=== PATIENT | male | born 1945 | race Caucasian/White ===

== ENCOUNTER 2017-05-04 20:37 | Inpatient (IN) | payer MEDICARE ==
[2017-05-04 20:41] VITALS: BP 198/89; PULSE 61; RESP 16; TEMP 87.8; TEMP 97.8; O2SAT 97
[2017-05-04 21:04] VITALS: RESP 18; O2SAT 98
--- NOTE | 2017-05-04 21:19 | PD ---
HPI Chief Complaint: Neuro Symptoms/ Deficits Time Seen by Provider: 21:03 Travel History International Travel<30 days: No Contact w/Intl Traveler<30days: No Traveled to known affect area: No History of Present Illness HPI The patient is a 71 year old male who presents to the [facility] emergency department with a history of at approximately 5 PM today having onset of left arm numbness and weakness. The patient reports that this lasted between 10 and 15 minutes. He reports that it then again recurred at 7:45 PM. At that time it lasted for shorter period of time, approximately 10 minutes. He became concerned that this may be something serious, therefore he did come to the emergency department. He denies having any symptoms currently. He denies having any prior history of TIA or stroke. He reports that he does take a low- dose aspirin daily for preventative reasons. The patient reports having a prior history of hyperlipidemia and hypertension. The patient's primary care physician is Dr. Paiz. He denies having any prior history of irregular heartbeat. The patient denies having any associated weakness in his legs. He denies having any facial droop, difficulty with word finding ability, double vision or change in vision. On review of systems, the patient denies any recent fevers, headache, cough, congestion, neck pain, chest pain, shortness of breath, abdominal pain, vomiting, diarrhea, or urinary symptoms. [facility] Past Medical History Narrative Medical The patient's past medical history is significant for hypertension, hyperlipidemia, seasonal allergies FH heart disease. High Cholesterol: Yes Hypertension: Yes Immunizations Current: Yes Past Surgical History Narrative Surgical The patient's past surgical history is significant for a bilateral inguinal hernia repair. Abdominal Surgery: Yes (INGUINAL HERNIA) Social History Alcohol Use: Yes Tobacco Use: No (he quit prior to 1974) Substance Use: No Allergies-Medications (Allergen,Severity, Reaction): Coded Allergies: No Known Allergies (Unverified , 05/04/17) Reported Meds & Prescriptions Reported Meds & Active Scripts Active Narrative Medication atorvastatin, aspirin 81mg. Review of Systems Except as stated in HPI: all other systems reviewed are Neg General / Constitutional: No: Fever Eyes: No: Visual changes HENT: No: Headaches Cardiovascular: No: Chest Pain or Discomfort Respiratory: No: Shortness of Breath Gastrointestinal: No: Abdominal Pain Genitourinary: No: Dysuria Musculoskeletal: No: Pain Skin: No Rash Neurologic: Positive: Weakness, Focal Abnormalities, Paresthesia, Sensory Disturbance, No: Headache, Change in Mentation, Slurred Speech Psychiatric: No: Depression Endocrine: No: Polydipsia Hematologic/Lymphatic: No: Easy Bruising Physical Exam Narrative General: The patient is a well-developed well-nourished male in no acute distress. Head and Neck exam: Head is normocephalic atraumatic. Eyes: EOMI, pupils are equal round and reactive to light. Nose: Midline septum with pink mucous membranes Mouth: Dentition unremarkable. Moist mucus membranes. Posterior oropharynx is not erythematous. No tonsillar hypertrophy. Uvula midline. Airway patent. Neck: No palpable lymphadenopathy. No nuchal rigidity. No thyromegaly. No carotid bruits are audible. Cardiovascular: Regular rate and rhythm without murmurs, gallops, or rubs. No pulse deficit to the extremities and simultaneous auscultation and palpation of his radial artery. Lungs: Clear to auscultation bilaterally. No wheezes, rhonchi, or rales. Abdomen: Soft, without tenderness to palpation in all 4 quadrants of the abdomen. No guarding, rebound, or rigidity. Normal bowel sounds are audible. No tenderness on palpation of McBurney's point. Extremities: No clubbing, cyanosis, or edema. 2+ pulses in all 4 extremities. No calf tenderness on palpation. Back: No costovertebral angle tenderness to palpation. Neurologic Exam: Cranial nerves 2-12 were intact on exam. Strength is 5/5 in all 4 extremities. No sensory deficits noted. No dysdiadochokinesis. Good finger to nose and Heel to cerrato bilaterally. Skin Exam: No rash noted. Intact skin that is warm and dry. Data Data Last Documented VS Vital Signs Date Time Temp Pulse Resp B/P Pulse Ox O2 Delivery O2 Flow Rate FiO2 05/04/17 21:04 56 18 97 Room Air 05/04/17 20:41 97.8 198/89 Orders Electrocardiogram (05/04/17 21:27) Complete Blood Count With Diff (05/04/17 21:27) Comprehensive Metabolic Panel (05/04/17 21:27) Prothrombin Time / Inr (Pt) (05/04/17 21:27) Act Partial Throm Time (Ptt) (05/04/17 21:27) Magnesium (Mg) (05/04/17 21:27) Ct Brain W/O Iv Contrast(Rout) (05/04/17 21:27) Iv Access Insert/Monitor (05/04/17 21:27) Ecg Monitoring (05/04/17 21:27) Oximetry (05/04/17 21:27) Head Of Bed (05/04/17 21:27) Sodium Chlor 0.9% 1000 Ml Inj (Ns 1000 M (05/04/17 21:30) Admit Order (Ed Use Only) (05/04/17 22:38) Place In Observation (05/04/17 ) Vital Signs (Adult) Q2HX12,Q4H (05/04/17 22:37) Nih Stroke Scale - Nihss .Daily (05/04/17 22:37) Neuro Checks Q2HX12,Q4H (05/04/17 22:37) Notify Dr: Other (05/04/17 22:37) Remove Urinary Catheter .ONCE (05/04/17 22:37) Ot Request For Service (05/04/17 22:37) Pt Request For Service (05/04/17 22:37) Case Management Consult (05/04/17 ) Nursing Bedside Swallow Assess .ONCE (05/04/17 22:37) Scd Bilateral/Knee High PAM.QSHIFT (05/04/17 22:37) Hemoglobin (Hgb) A1c (05/04/17 22:37) Lipid Profile (05/05/17 06:00) Us Carotid Arteries Comp Bilat (05/04/17 ) ^ Hold Medication (05/04/17 22:37) Sodium Chloride 0.9% Flush (Ns Flush) (05/05/17 09:00) Sodium Chloride 0.9% Flush (Ns Flush) (05/04/17 22:45) Technical Consultant / Telemetry PAM.Q8H (05/04/17 22:37) Consult Stoke Navigator (05/04/17 ) Echo 2d Comp With Doppler (05/05/17 ) Labs Laboratory Tests Test 05/04/17 21:00 White Blood Count 10.1 TH/MM3 Red Blood Count 4.96 MIL/MM3 Hemoglobin 14.9 GM/DL Hematocrit 44.2 % Mean Corpuscular Volume 89.1 FL Mean Corpuscular Hemoglobin 30.0 PG Mean Corpuscular Hemoglobin 33.7 % Concent Red Cell Distribution Width 13.2 % Platelet Count 234 TH/MM3 Mean Platelet Volume 7.9 FL Neutrophils (%) (Auto) 57.2 % Lymphocytes (%) (Auto) 33.5 % Monocytes (%) (Auto) 7.1 % Eosinophils (%) (Auto) 1.4 % Basophils (%) (Auto) 0.8 % Neutrophils # (Auto) 5.8 TH/MM3 Lymphocytes # (Auto) 3.4 TH/MM3 Monocytes # (Auto) 0.7 TH/MM3 Eosinophils # (Auto) 0.1 TH/MM3 Basophils # (Auto) 0.1 TH/MM3 CBC Comment DIFF FINAL Differential Comment Prothrombin Time 10.1 SEC Prothromb Time International 0.9 RATIO Ratio Activated Partial 24.4 SEC Thromboplast Time Sodium Level 142 MEQ/L Potassium Level 3.6 MEQ/L Chloride Level 108 MEQ/L Carbon Dioxide Level 24.9 MEQ/L Anion Gap 9 MEQ/L Blood Urea Nitrogen 24 MG/DL Creatinine 1.13 MG/DL Estimat Glomerular Filtration 64 ML/MIN Rate Random Glucose 124 MG/DL Calcium Level 8.5 MG/DL Magnesium Level 2.4 MG/DL Total Bilirubin 0.4 MG/DL Aspartate Amino Transf 32 U/L (AST/SGOT) Alanine Aminotransferase 37 U/L (ALT/SGPT) Alkaline Phosphatase 76 U/L Total Protein 7.2 GM/DL Albumin 4.1 GM/DL MDM Medical Decision Making Medical Screen Exam Complete: Yes Emergency Medical Condition: Yes Medical Record Reviewed: Yes Interpretation(s) Last Impressions Head CT 05/04/172126 Signed Impressions: Service Date/Time: Thursday, May 04, 2017 21:51 - CONCLUSION: Negative noncontrast CT brain. Easton Rainey MD Carotid Artery Ultrasound 05/04/17 0000 Signed Impressions: Service Date/Time: Thursday, May 04, 2017 22:37 - CONCLUSION: 1. Abnormal right carotid with significantly elevated peak systolic velocity and velocity ratio, characteristic of 70-90%% stenosis. 2. Mild plaque formation in the left carotid with hemodynamic profile characteristic of less than 50%% stenosis. Easton Rainey MD Differential Diagnosis TIA, versus cervical radiculopathy, versus peripheral neuropathy Narrative Course During the course of the patients emergency department visit, the patients history, examination, and differential diagnosis were reviewed with the patient. The patient had IV access obtained and blood work sent for analysis. The patient was placed on a computer application developer with oximetry and blood pressure monitoring. The patient was placed with the head of the bed flat. The patient was given normal saline at 70 mL per hour. An ECG done on arrival shows a sinus bradycardia heart rate of 57, left anterior fascicular block, no acute ST segment elevation or depression, T waves are inverted in V5, V6. QRS duration is 102 ms, QTC is [address] scan of the brain was ordered. The patients laboratory studies were reviewed and remarkable for a CBC that is within normal limits, CMP is remarkable for chloride of 108, BUN 24, glucose 124 , PT 10.1, PTT 24.4 Radiology studies were reviewed and remarkable for a CT scan of the brain that showed no acute abnormality. After further discussion with the admitting hospitalist, the patient was started on Aggrenox. The patients results were discussed with the patient, including the plan of care. I explained that further testing and/ or monitoring is indicated based on the patients history, examination, and/ or laboratory findings. Therefore, I recommended admission for additional evaluation. The patient expressed understanding and was agreeable with this plan. The patient was admitted to the hospital in guarded condition and [facility] Physician Communication Physician Communication The patient's case was discussed with Dr. Bolden who did agree to admit the patient for further evaluation and treatment at this time. Diagnosis Primary Impression: TIA (transient ischemic attack) Qualified Code: G45.9 - Transient cerebral ischemia, unspecified type Admitting Information Admitting Physician Requests: Carmen rBidges MD May 04, 2017 21:19
[2017-05-04] MEDS: SODIUM CHLOR 0.9% 1000 ML INJ 1,000 ML IV SCH (21:47)
[2017-05-04 22:05] LABS: AUTOMATED NEUTROPHIL # 5.8 TH/MM3 (1.8-7.7); BASOPHIL # 0.1 TH/MM3 (0-0.2); BASOPHIL % 0.8 % (0.0-2.0); EOSINOPHIL # 0.1 TH/MM3 (0-0.4); EOSINOPHIL % 1.4 % (0.0-4.0); HEMATOCRIT 44.2 % (39.0-51.0); HEMO FLAGS DIFF FINAL; LYMPH % 33.5 % (9.0-44.0); LYMPHOCYTE # 3.4 TH/MM3 (1.0-4.8); MEAN CELL VOLUME 89.1 FL (80.0-100.0); MEAN CORPUSCULAR HGB CONC 33.7 % (32.0-36.0); MONO % 7.1 % (0.0-8.0); NEUT % 57.2 % (16.0-70.0); PLATELET COUNT 234 TH/MM3 (150-450); RED BLOOD COUNT 4.96 MIL/MM3 (4.50-5.90); RED CELL DISTRIBUTION WIDTH 13.2 % (11.6-17.2); WHITE BLOOD COUNT 10.1 TH/MM3 (4.0-11.0)
[2017-05-04 22:18] LABS: APTT (PATIENT) 24.4 SEC (24.3-30.1); INTERNATIONAL NORMALIZED RATIO 0.9 RATIO; PROTHROMBIN TIME - PATIENT 10.1 SEC (9.8-11.6)
[2017-05-04 22:20] LABS: ALT (GPT) 37 U/L (12-78)
[2017-05-04 22:22] LABS: ALKALINE PHOSPHATASE 76 U/L (45-117); TOTAL BILIRUBIN ADULT 0.4 MG/DL (0.2-1.0)
[2017-05-04 22:23] LABS: ANION GAP 9 MEQ/L (5-15); AST (GOT) 32 U/L (15-37); BICARBONATE 24.9 MEQ/L (21.0-32.0); BLOOD UREA NITROGEN 24 MG/DL (7-18); CHLORIDE 108 MEQ/L (98-107); GLOMERULAR FILTRATION RATE 64 ML/MIN (>89); MAGNESIUM 2.4 MG/DL (1.5-2.5); POTASSIUM 3.6 MEQ/L (3.5-5.1); SODIUM (NA) 142 MEQ/L (136-145)
[2017-05-04] MEDS ORDERED: SODIUM CHLORIDE 0.9% FLUSH 5 ML FLUSH IV FLUSH PRN (22:45)
--- NOTE | 2017-05-04 22:54 | RADRPT ---
EXAM DATE/TIME: 05/04/2017 21:51 [facility] COMPARISON: No previous studies available for comparison. INDICATIONS : Left side weakness and numbness. RADIATION DOSE: 35.51 CTDIvol (mGy) MEDICAL HISTORY : Hypertension. Hernia, inguinal. SURGICAL HISTORY : None. ENCOUNTER: Initial ACUITY: 1 day PAIN SCALE: 0/10 LOCATION: cranial TECHNIQUE: Multiple contiguous axial images were obtained of the head. Using automated exposure control and adj ustment of the mA and/or kV according to patient size, radiation dose was kept as low as reasonably a chievable to obtain optimal diagnostic quality images. DICOM format image data is available electro nically for review and comparison. FINDINGS: CEREBRUM: The ventricles are normal for age. No evidence of midline shift, mass lesion, hemorrhage or acute in farction. No extra-axial fluid collections are seen. POSTERIOR FOSSA: The cerebellum and brainstem are intact. The 4th ventricle is midline. The cerebellopontine angle i s unremarkable. EXTRACRANIAL: The visualized portion of the orbits is intact. SKULL: The calvaria is intact. No evidence of skull fracture. CONCLUSION: Negative noncontrast CT brain. Easton Rainey MD on May 04, 2017 at 22:51 Board Certified Radiologist. This report was verified electronically.
[2017-05-04 23:00] VITALS: BP 171/85; PULSE 65; RESP 16; O2SAT 98
--- NOTE | 2017-05-04 23:40 | HHI.HP ---
HPI Service [facility] Primary Care Physician Ángel Paiz Admission Diagnosis TIA Diagnoses: Travel History International Travel<30 Days: No Contact w/Intl Traveler <30 Da: No Traveled to Known Affected Are: No History of Present Illness History from patient with his at the bedside, ER physician communication, and review of medical records. Patient reported that he came to the hospital because he was having this left upper extremity numbness at around 5 PM. He stated that the episode lasted for about 15 minutes and then took resolved on its own. By 7:30 PM, he had another episode of this numbness on his left upper extremity again. This also spontaneously resolved after a few minutes. Apart from the above, patient denies any recent fever/nausea/vomiting/diarrhea/ urinary burning or pain on urination. He denies any hematemesis/hematochezia/melena/hematuria. Denies any prior similar episodes. Reports that he has history of hypertension, and hyperlipidemia. He is compliant with his medications. He states he takes a baby aspirin at home as well. He is also on blood pressure and cholesterol medication at home. Review of Systems Except as stated in HPI: all other systems reviewed are Neg Past Family Social History Past Medical History hnt hyperlipidemia Past Surgical History hernia inguinal repair x 2 Reported Medications norvasc 10mg po daily fexofenadine 180mg po daily omega 3 atorvastatin 10mg qhs asa 81mg po daily fluticasone nasal spray- allergiies mvi Allergies: Coded Allergies: No Known Allergies (Unverified , 05/04/17) Family History brother and father- bypass cabg brother- tia Social History quit smoking 45yrs ago no drinking heavily no drugs Physical Exam Vital Signs Vital Signs Date Time Temp Pulse Resp B/P Pulse Ox O2 Delivery O2 Flow Rate FiO2 05/04/17 21:04 56 18 97 Room Air 05/04/17 21:04 18 98 Room Air 05/04/17 20:41 97.8 61 16 198/89 97 Room Air Physical Exam GENERAL: This is a well-nourished, well-developed patient, in no apparent distress. SKIN: No rashes, ecchymoses or lesions. Cool and dry. HEAD: Atraumatic. Normocephalic. No temporal or scalp tenderness. EYES: No scleral icterus. No injection or drainage. ENT: Nose without bleeding, purulent drainage or septal hematoma. Airway patent. NECK: Trachea midline. No JVD CARDIOVASCULAR: Regular rate and rhythm without murmurs, gallops, or rubs. RESPIRATORY: Clear to auscultation. Breath sounds equal bilaterally. No wheezes , rales, or rhonchi. GASTROINTESTINAL: Abdomen soft, non-tender, nondistended. No guarding. MUSCULOSKELETAL: Extremities without clubbing, cyanosis, or edema. No calf tenderness. NEUROLOGICAL: Awake and alert. Cranial nerves II through XII intact. Motor and sensory grossly within normal limits. Five out of 5 muscle strength in all muscle groups. Normal speech. Laboratory Laboratory Tests Test 05/04/17 21:00 White Blood Count 10.1 Red Blood Count 4.96 Hemoglobin 14.9 Hematocrit 44.2 Mean Corpuscular Volume 89.1 Mean Corpuscular Hemoglobin 30.0 Mean Corpuscular Hemoglobin 33.7 Concent Red Cell Distribution Width 13.2 Platelet Count 234 Mean Platelet Volume 7.9 Neutrophils (%) (Auto) 57.2 Lymphocytes (%) (Auto) 33.5 Monocytes (%) (Auto) 7.1 Eosinophils (%) (Auto) 1.4 Basophils (%) (Auto) 0.8 Neutrophils # (Auto) 5.8 Lymphocytes # (Auto) 3.4 Monocytes # (Auto) 0.7 Eosinophils # (Auto) 0.1 Basophils # (Auto) 0.1 CBC Comment DIFF FINAL Differential Comment Prothrombin Time 10.1 Prothromb Time International 0.9 Ratio Activated Partial 24.4 Thromboplast Time Sodium Level 142 Potassium Level 3.6 Chloride Level 108 Carbon Dioxide Level 24.9 Anion Gap 9 Blood Urea Nitrogen 24 Creatinine 1.13 Estimat Glomerular Filtration 64 Rate Random Glucose 124 Calcium Level 8.5 Magnesium Level 2.4 Total Bilirubin 0.4 Aspartate Amino Transf 32 (AST/SGOT) Alanine Aminotransferase 37 (ALT/SGPT) Alkaline Phosphatase 76 Total Protein 7.2 Albumin 4.1 Result Diagram: 05/04/17 2100 05/04/17 2100 Imaging Last [address] 05/04/172126 Signed Impressions: Service Date/Time: Thursday, May 04, 2017 21:51 - CONCLUSION: Negative noncontrast CT brain. Easton Rainey MD Carotid Artery Ultrasound 05/04/17 0000 Signed Impressions: Service Date/Time: Thursday, May 04, 2017 22:37 - CONCLUSION: 1. Abnormal right carotid with significantly elevated peak systolic velocity and velocity ratio, characteristic of 70-90%% stenosis. 2. Mild plaque formation in the left carotid with hemodynamic profile characteristic of less than 50%% stenosis. Easton Rainey MD Assessment and Plan Assessment and Plan Impression: TIA History of hypertension, History of hyperlipidemia Plan: Patient's head CTpersonally reviewed. No evidence of acute infarct/mass effect /bleed. Patient is also asymptomatic by the time of our examination and arrival to ER. However, I had ordered for carotid ultrasound as part of workup for his TIA and this reveals significant right carotid artery stenosis of 70-90%. Would consult vascular surgery. Urology consult. Give patient Aggrenox 1 times dose now, and followed by twice a day dosing. Further anticoagulation choice by neurology. Permissive hypertension for now. Echocardiogram in a.m. Speech and swallow evaluation. Physical therapy evaluation. DVT prophylaxiswith Lovenox. Changed to full admit in light of carotid ultrasound findings and patient's repeated TIA symptoms on the left consistent with right carotid artery stenosis Discussed Condition With Patient, , ER physician, nursing staff Kaya Bolden MD May 04, 2017 23:40
--- NOTE | 2017-05-04 23:50 | RADRPT ---
EXAM DATE/TIME: 05/04/2017 22:37 [facility] COMPARISON: No previous studies available for comparison. INDICATIONS : Transient ischemic attack. MEDICAL HISTORY : Hypercholesterolemia. Hypertension. Alcohol use. SURGICAL HISTORY : Hernia repair, inguinal. ENCOUNTER: Initial ACUITY: 1 day PAIN SCORE: 0/10 LOCATION: Bilateral neck PEAK SYSTOLIC VELOCITIES (cm/sec): ICA/CCA RATIO: Right: 4.8 Left: 0.9 ICA: Right: 389.3 Left: 114.3 CCA: Right: 81.7 Left: 122.3 ECA: Right: 224.4 Left: 148.9 VERTEBRAL: Right: 42.6 antegrade Left: 38.7 antegrade Elevated flow velocities and ICA/CCA ratios have been found to correlate with increased degrees of vessel stenosis, calculated as percentage of diameter relative to a normal segment of distal ICA/CCA FINDINGS: RIGHT CAROTID: There is prominent echogenic and partially shadowing plaque in the proximal internal carotid artery a nd carotid bulb. There is significant widening of the velocity spectrum in the proximal and mid inte rnal carotid artery with negative velocity components during systole. LEFT CAROTID: Mild plaque formation in the proximal internal carotid artery without significant spectral widening. VERTEBRAL ARTERIES: Antegrade flow is seen in both vertebral arteries. CONCLUSION: 1. Abnormal right carotid with significantly elevated peak systolic velocity and velocity ratio, colette acteristic of 70-90% stenosis. 2. Mild plaque formation in the left carotid with hemodynamic profile characteristic of less than 50% stenosis. Easton Rainey MD on May 04, 2017 at 23:45 Board Certified Radiologist. This report was verified electronically.
[2017-05-05] VITALS (7 sets, daily range): BP systolic 146–174; BP diastolic 78–87; PULSE 56–62; RESP 16–20; TEMP 97.5–98.1; O2SAT 95–98
[2017-05-05] MEDS ORDERED: DIPYRIDAMOLE/ASPIRIN 200 MG/25 MG CAP PO ONE
[2017-05-05] MEDS ORDERED: AMLO10TA2 PO (05:06)
[2017-05-05] MEDS ORDERED: ATOR10TA15 PO (05:06)
[2017-05-05] MEDS ORDERED: FEXO180T PO (05:06)
[2017-05-05] MEDS ORDERED: ASPI81CH CHEW (05:06)
[2017-05-05] MEDS: SODIUM CHLORIDE 0.9% FLUSH 5 ML FLUSH IV FLUSH SCH ×2 (07:44→20:58)
[2017-05-05] MEDS: SODIUM CHLOR 0.9% 1000 ML INJ 1,000 ML IV SCH (07:44)
[2017-05-05] MEDS ORDERED: DIPYRIDAMOLE/ASPIRIN 200 MG/25 MG CAP PO SCH (09:00)
[2017-05-05] MEDS ORDERED: ENOXAPARIN SODIUM 40 MG/0.4 ML SYRINGE SQ SCH (09:00)
--- NOTE | 2017-05-05 10:13 | PD.VS.CON ---
History of Present Illness Chief Complaint: Right Sided Carotid Stenosis Recent Hx of two episodes of Left arm weakness/numbness (resolved) Consult Requested by: Dr. Bolden History of Present Illness Mr. Redding is a 71/M with a PMH of Hypertension and Hyperlipidemia. Pt arrived to the Emergency Department yesterday evening after experiencing two episodes of left arm weakness/numbness lasting 15 minutes. Pt denied any visual or speech disturbances while episodes occurred. Recent Ultrasound study revealed new onset right sided carotid artery stenosis, No previous hx of (Jessica Wagner) Past/Family/Social History Past Medical History HTN Hyperlipidemia Past Surgical History Inguinal Hernia Repair X 2 (42 years ago) Social History Admits to Etoh Denies current tobacco usage Denies Illicit drug usage Pt with a 7Y hx of tobacco usage quit in 1969 Family History Father- CAD (Hx of CABG) Brother- TIA, CAD (Hx of CABG) (Jessica Wagner) Home Medications Reported Medications Aspirin 81 Mg Chew81 Mg CHEW DAILY Ref 0 05/05/17 Amlodipine 10 Mg Tab10 Mg PO DAILY #30 TAB Ref 0 05/05/17 Fexofenadine 180 Mg Hal937 Mg PO DAILY #30 TAB Ref 0 05/05/17 Atorvastatin 10 Mg Tab10 Mg PO HS #30 TAB Ref 0 05/05/17 Coded Allergies: No Known Allergies (Unverified , 05/04/17) Review of Systems Except as stated in HPI: all other systems reviewed are Neg (Jessica Wagner) Physical Exam Vitals/I&O Date Time Temp Pulse Resp B/P Pulse Ox O2 Delivery O2 Flow Rate FiO2 05/05/17 08:05 97.5 61 20 167/85 95 05/05/17 05:38 97.8 62 18 174/87 98 05/05/17 01:00 59 16 154/86 98 Room Air 05/04/17 23:00 65 16 171/85 98 Room Air 05/04/17 21:04 56 18 97 Room Air 05/04/17 21:04 18 98 Room Air 05/04/17 20:41 97.8 61 16 198/89 97 Room Air Neuro: A&OX3 GCS15 CN 2-12 Intact Neck: No JVD Heart: +S1,S2 Lungs: CTA (Jessica Wagner) Laboratory Tests Test 05/04/17 21:00 White Blood Count 10.1 Red Blood Count 4.96 Hemoglobin 14.9 Hematocrit 44.2 Mean Corpuscular Volume 89.1 Mean Corpuscular Hemoglobin 30.0 Mean Corpuscular Hemoglobin 33.7 Concent Red Cell Distribution Width 13.2 Platelet Count 234 Mean Platelet Volume 7.9 Neutrophils (%) (Auto) 57.2 Lymphocytes (%) (Auto) 33.5 Monocytes (%) (Auto) 7.1 Eosinophils (%) (Auto) 1.4 Basophils (%) (Auto) 0.8 Neutrophils # (Auto) 5.8 Lymphocytes # (Auto) 3.4 Monocytes # (Auto) 0.7 Eosinophils # (Auto) 0.1 Basophils # (Auto) 0.1 CBC Comment DIFF FINAL Differential Comment Prothrombin Time 10.1 Prothromb Time International 0.9 Ratio Activated Partial 24.4 Thromboplast Time Sodium Level 142 Potassium Level 3.6 Chloride Level 108 Carbon Dioxide Level 24.9 Anion Gap 9 Blood Urea Nitrogen 24 Creatinine 1.13 Estimat Glomerular Filtration 64 Rate Random Glucose 124 Calcium Level 8.5 Magnesium Level 2.4 Total Bilirubin 0.4 Aspartate Amino Transf 32 (AST/SGOT) Alanine Aminotransferase 37 (ALT/SGPT) Alkaline Phosphatase 76 Total Protein 7.2 Albumin 4.1 Last [address] 05/04/172126 Signed Impressions: Service Date/Time: Thursday, May 04, 2017 21:51 - CONCLUSION: Negative noncontrast CT brain. Easton Rainey MD Carotid Artery Ultrasound 05/04/17 0000 Signed Impressions: Service Date/Time: Thursday, May 04, 2017 22:37 - CONCLUSION: 1. Abnormal right carotid with significantly elevated peak systolic velocity and velocity ratio, characteristic of 70-90%% stenosis. 2. Mild plaque formation in the left carotid with hemodynamic profile characteristic of less than 50%% stenosis. Easton Rainey MD (Jessica Wagner) Assessment and Plan Assessment: (1) Carotid arterial disease Status: Acute Plan Pt with recent hx of Left arm weakness/numbness (resolved) Carotid U/S shows R Carotid Stenosis 70-90% Plan Reviewed U/S results w/ patient Ordered CTA neck Will review CTA to determine next plan of action Continue medical management ASA/Statin Jessica CHARLES [facility] [phone] (Jessica Wagner) Plan Pt seen and examined. He likely had a symptomatic TIA from his R ICA stenosis. Will get CTA neck and if >70% will perform CEA. (NASCET: 2y recurrent CVA rate 26% to 9% with CEA). Discussed operation, risks and benefits with patient and his family. He agrees to proceed if CT shows such a lesion. Rigoberto Worthy MD [facility] RPVI vacuum tester cans [facility] at [facility] [phone] (Rigoberto Worthy MD) Problem Qualifiers (1) Carotid arterial disease: Qualified Code: I77.9 - Right-sided carotid artery disease Jessica Wagner May 05, 2017 10:13 Rigoberto Worthy MD May 05, 2017 15:28
--- NOTE | 2017-05-05 10:43 | PD.CONS ---
History of Present Illness Service Neurology Consult Requested By med/er Reason for Consult tia Primary Care Physician Ángel Paiz History of Present Illness 71 y/o m with recurrent left sided numbness. ct brain naicp. glucose 124. carotid u/s shows rt carotid stenosis 70-90%. Denies any prior similar episodes. He states he takes a baby aspirin at home as well. no previous stroke. he went to mri this afternoon and on his way back had another episode of left numbness that has dissipated. no weakness, no vision loss. feels well otherwise. has been ambulating without difficulty. Review of Systems Except as stated in HPI: all other systems reviewed are Neg Past Family Social History Past Medical History htn hyperlipidemia Past Surgical History hernia inguinal repair x 2 Allergies: Coded Allergies: No Known Allergies (Unverified , 05/04/17) Family History f- cabg brother- tia Social History quit smoking 45yrs ago no drinking heavily no drugs Review of Systems All other ROS: ROS reviewed as documented in chart Past Family Social History Allergies: Coded Allergies: No Known Allergies (Unverified , 05/04/17) Active Ordered Medications Current Medications Medications (Trade) Dose Ordered Sig/Rai Route Start Time Stop Time Status Last Admin (NS 1000 ml Inj) 1,000 ml @ 70 mls/hr [id number] IV 05/04/17 21:30 05/04/17 21:47 (NS Flush) 2 ml BID IV FLUSH 05/05/17 09:00 (NS Flush) 2 ml UNSCH PRN IV FLUSH 05/04/17 22:45 (Aggrenox 200-25 Mg) 1 cap Q12HR PO 05/05/17 09:00 05/05/17 07:44 (Lovenox Inj) 40 mg Q24H SQ 05/05/17 09:00 05/05/17 07:44 Exam I&O / VS Vital Signs Date Time Temp Pulse Resp B/P Pulse Ox O2 Delivery O2 Flow Rate FiO2 05/05/17 08:05 97.5 61 20 167/85 95 05/05/17 05:38 97.8 62 18 174/87 98 05/05/17 01:00 59 16 154/86 98 Room Air 05/04/17 23:00 65 16 171/85 98 Room Air 05/04/17 21:04 56 18 97 Room Air 05/04/17 21:04 18 98 Room Air 05/04/17 20:41 97.8 61 16 198/89 97 Room Air General: Alert and Oriented, No acute distress Eye: EOMI Respiratory: Non-labored respirations Neurologic: Alert, Oriented, Normal sensory, Normal motor, CN II-XII intact, Normal DTR's Psychiatric: Cooperative, Appropriate mood & affect, Normal judgement, Non- suicidal Exam Comments ox x , no aphasia, no neglect, lying in bed looks comfortable, eomi, vff, face sym, left ue minimal dystaxia, no drift, able to raise all 4 ext to gravity >10 secs, msr sym, nihss 1 at best Review/Management Diagnosis/Plan: (1) Acute ischemic right MCA stroke Plan: stroke non-disabling at present mri+ rt mca embolic strokes likely 2/2 symptomatic rt carotid recs d/w pt and spouse timing of rt cea (if cta +) including ich, stroke; however, our concern is that this should be treated suzan as he appears to be having recurrent events. they understand this and elect for surgery, sooner rather then later based on size and number, probable [id number] risk for ich d/w vascular surgery hep 5000 sub qhrs aspirin ivf follow exam (2) Carotid arterial disease Plan: symptomatic rt carotid stenosis (3) HTN (hypertension) Problem Qualifiers (1) Carotid arterial disease: Qualified Code: I77.9 - Right-sided carotid artery disease (2) HTN (hypertension): Qualified Code: I10 - Essential hypertension Rey Da Silva MD May 05, 2017 10:42
[2017-05-05 11:15] LABS: HDL CHOLESTEROL 35.5 MG/DL (40.0-60.0); LDL CHOLESTEROL 102 MG/DL (0-99)
--- NOTE | 2017-05-05 11:24 | HHI.PR ---
Subjective Remarks resting comfortably with no distress. no numbness or weakness. has mild headache. Objective Vitals Vital Signs Date Time Temp Pulse Resp B/P Pulse Ox O2 Delivery O2 Flow Rate FiO2 05/05/17 08:05 97.5 61 20 167/85 95 05/05/17 05:38 97.8 62 18 174/87 98 05/05/17 01:00 59 16 154/86 98 Room Air 05/04/17 23:00 65 16 171/85 98 Room Air 05/04/17 21:04 56 18 97 Room Air 05/04/17 21:04 18 98 Room Air 05/04/17 20:41 97.8 61 16 198/89 97 Room Air Result Diagram: 05/04/17 2100 05/04/17 2100 Imaging Last Impressions Head CT [id number]/04/172126 Signed Impressions: Service Date/Time: Thursday, May 04, 2017 21:51 - CONCLUSION: Negative noncontrast CT brain. Easton Rainey MD Carotid Artery Ultrasound 05/04/17 0000 Signed Impressions: Service Date/Time: Thursday, May 04, 2017 22:37 - CONCLUSION: 1. Abnormal right carotid with significantly elevated peak systolic velocity and velocity ratio, characteristic of 70-90%% stenosis. 2. Mild plaque formation in the left carotid with hemodynamic profile characteristic of less than 50%% stenosis. Easton Rainey MD Objective Remarks GENERAL: This is a well-nourished, well-developed patient, in no apparent distress. CARDIOVASCULAR: Regular rate and regular rhythm without murmurs, gallops, or rubs. RESPIRATORY: Clear to auscultation. Breath sounds equal bilaterally. No wheezes , rales, or rhonchi. GASTROINTESTINAL: Abdomen soft, non-tender, nondistended. Normal, active bowel sounds MUSCULOSKELETAL: Extremities without clubbing, cyanosis, or edema. NEURO: Alert & Oriented x4 to person, place, time, situation. Moves all ext x4 Medications and IVs Current Medications Sodium Chloride (NS 1000 ml Inj) 1,000 ml @ 70 mls/hr [id number] IV Last administered on 05/04/17t 21:47; Start 05/04/17 at 21:30 IV Flush (NS Flush) 2 ml BID IV FLUSH ; Start 05/05/17 at 09:00 IV Flush (NS Flush) 2 ml UNSCH PRN IV FLUSH FLUSH AFTER USING IV ACCESS; Start 05/04/17 at 22:45 Dipyridamole/ Aspirin (Aggrenox 200-25 Mg) 1 cap ONCE ONCE PO Last administered on 05/05/17 01:42; Start 05/05/17 at 00:00; Stop 05/05/17 at 00:01; Status DC Dipyridamole/ Aspirin (Aggrenox 200-25 Mg) 1 cap Q12HR PO Last administered on 05/05/17 07:44; Start 05/05/17 at 09:00 Enoxaparin Sodium (Lovenox Inj) 40 mg Q24H SQ Last administered on 05/05/17 07: 44; Start 05/05/17 at 09:00 A/P Assessment and Plan A/P TIA with carotid artery disease continue aspirin and statin continue aggrenox- MRI brain/ CTA neck pending neurology and vascular surgery following. History of hypertension- resume amlodipine continue to monitor and adjust the regimen as needed. History of hyperlipidemia- on statin DVT prophylaxis with subq Charla eVga MD May 05, 2017 11:24
[2017-05-05] MEDS: ACETAMINOPHEN 325 MG TAB PO PRN (11:43)
[2017-05-05 12:59] LABS: HEMOGLOBIN A1a 1.1 %; HEMOGLOBIN A1b 1.7 %; HEMOGLOBIN Ao 85.5 %; HEMOGLOBIN P3 3.7 %
--- NOTE | 2017-05-05 13:57 | RADRPT ---
EXAM DATE/TIME: 05/05/2017 12:29 [facility] COMPARISON: No previous studies available for comparison. INDICATIONS : Numbness in left arm and hand. MEDICAL HISTORY : Hypertension. SURGICAL HISTORY : Inguinal hernia repair. ENCOUNTER: Subsequent ACUITY: 1 day PAIN SCORE: 0/10 LOCATION: cranial TECHNIQUE: Multiplanar, multisequence MRI of the brain was performed without contrast. FINDINGS: There are multiple small infarcts in the right MCA distribution the largest measuring about 1.9 cm in diameter in the right parietal lobe. There are also tiny acute lacunar infarcts in the right basal g [place]. Mild white matter ischemic changes. No mass effect or shift. No hydrocephalus. No abnormal extra-axia l fluid collections. CONCLUSION: 1. Multiple small infarcts in the right MCA distribution. No mass effect or shift. José Miguel Valentin MD on May 05, 2017 at 13:48 Board Certified Radiologist. This report was verified electronically.
--- NOTE | 2017-05-05 14:40 | ECHRPT ---
Indication: cva/tia CONCLUSIONS Normal left ventricular size. Mild concentric left ventricular hypertrophy. No regional wall motion abnormalities are present. The left ventricular systolic function is hyperdynamic with an estimated ejection fraction in the ra nge of 65- 70%. No mitral valve stenosis. Mild- mitral valve regurgitation. No aortic valve regurgitation. No aortic valve stenosis. There is mild tricuspid valve regurgitation. There is estimated mild pulmonary hypertension present (range 40-50 mmHg). The pulmonary valve is not well visualized. BP: 174 / 87 HR: 62 Rhythm: MEASUREMENTS (Male / Female) Normal Values Technical Quality:Good 2D ECHO LV Diastolic Diameter PLAX 4.3 cm 4.2 - 5.9 / 3.9 - 5.3 cm LV Systolic Diameter PLAX 3.0 cm IVS Diastolic Thickness 1.5 cm 0.6 - 1.0 / 0.6 - 0.9 cm LVPW Diastolic Thickness 1.1 cm 0.6 - 1.0 / 0.6 - 0.9 cm LV Relative Wall Thickness 0.6 RV Internal Dim ED PLAX 2.7 cm M-MODE Aortic Root Diameter MM 4.1 cm LA Systolic Diameter MM 3.6 cm LA Ao Ratio MM 0.9 AV Cusp Separation MM 2.0 cm DOPPLER Mitral E Point Velocity 80.9 cm/s Mitral A Point Velocity 94.3 cm/s Mitral E to A Ratio 0.9 LV E' Lateral Velocity 9.1 cm/s Mitral E to LV E' Lateral Ratio 8.9 LV E' Septal Velocity 6.8 cm/s Mitral E to LV E' Septal Ratio 11.9 TR Peak Velocity 312.0 cm/s TR Peak Gradient 38.9 mmHg FINDINGS LEFT VENTRICLE Normal left ventricular size. Mild concentric left ventricular hypertrophy. No regional wall motion abnormalities are present. The left ventricular systolic function is hyperdynamic with an estimated ejection fraction in the ra nge of 65- 70%. RIGHT VENTRICLE Normal right ventricular size and systolic function. LEFT ATRIUM The left atrial size is normal. RIGHT ATRIUM The right atrial size is normal. ATRIAL SEPTUM Normal atrial septal thickness without atrial level shunting by limited color doppler interrogation. AORTA The aortic root and proximal ascending aorta are normal in size on limited imaging. MITRAL VALVE Structurally normal mitral valve. No mitral valve stenosis. Mild mitral valve regurgitation. AORTIC VALVE Trileaflet aortic valve. No aortic valve regurgitation. No aortic valve stenosis. TRICUSPID VALVE Structurally normal tricuspid valve. There is mild tricuspid valve regurgitation. There is estimated mild pulmonary hypertension present (range 40-50 mmHg). PULMONARY VALVE The pulmonary valve is not well visualized. VESSELS The inferior vena cava is normal in size. PERICARDIUM No pericardial effusion. Haleigh Maldonado MD, FACC (Electronically Signed) Final Date:05 May 2017 14:39
--- NOTE | 2017-05-05 14:59 | EKG ---
Date Performed: 05/04/2017 Time Performed: 20:58:39 PTAGE: 71 years EKG: SINUS BRADYCARDIA LEFT ANTERIOR FASCICULAR BLOCK NONSPECIFIC T-WAVE ABNORMALITY ABNORMAL EC G NO PREVIOUS TRACING Clinical correlation is recommended. DOCTOR: Ayden Rajput Interpretating Date/Time 05/05/2017 14:57:08
[2017-05-05] MEDS: ASPIRIN 325 MG TAB PO SCH (16:48)
[2017-05-05] MEDS ORDERED: IOHEXOL 350 MG/ML 10 ML VIAL (for RAD DIAG) IV ONE (19:38)
--- NOTE | 2017-05-05 19:44 | RADRPT ---
EXAM DATE/TIME: 05/05/2017 18:56 [facility] COMPARISON: MRI BRAIN W/O CONTRAST, May 05, 2017, 12:29. INDICATIONS : Left sided weakness and numbness. IV CONTRAST: 70 cc Omnipaque 350 (iohexol) IV ; Cumulative dose for multiple exams. RADIATION DOSE: 28.33 CTDIvol (mGy) ; Combined studies MEDICAL HISTORY : Cardiovascular disease. Hypertension. SURGICAL HISTORY : Inguinal hernia repair. ENCOUNTER: Initial ACUITY: 2 days PAIN SCALE: 0/10 LOCATION: cranial TECHNIQUE: Volumetric scanning was performed using a multi-row detector CT scanner. The data was post processed with a variety of visualization algorithms including full volume maximum intensity projection, multi -planar sliding thin slab reformation, curved planar reformation, and surface rendering techniques. Using automated exposure control and adjustment of the mA and/or kV according to patient size, radiat ion dose was kept as low as reasonably achievable to obtain optimal diagnostic quality images. DICO M format image data is available electronically for review and comparison. FINDINGS: Symmetric appearance to the internal carotid arteries. Normal appearance to the A1 segment on both s ides. Normal appearance to the left MCA. On the right side, there is a short segment narrowing of t he proximal right M1 segment with approximately 50% narrowing. No poststenotic dilatation. There is intact flow the remainder of the right middle cerebral artery and sylvian branches. The left posterior cerebral artery arises from the anterior circulation. BILL is symmetric bilaterall y. The basilar artery has a normal configuration. CONCLUSION: 1. 50% narrowing of the proximal right M1 segment with contrast seen within the right MCA branch vess els. No focal occlusions seen. 2. Incomplete [place]. Easton Rainey MD on May 05, 2017 at 19:39 Board Certified Radiologist. This report was verified electronically.
--- NOTE | 2017-05-05 20:14 | RADRPT ---
EXAM DATE/TIME: 05/05/2017 18:56 [facility] COMPARISON: No previous studies available for comparison. INDICATIONS : Left sided weakness and numbness. Abnormal Ultrasound. IV CONTRAST: 70 cc Omnipaque 350 (iohexol) IV ; Cumulative dose for multiple exams. RADIATION DOSE: 28.33 CTDIvol (mGy) ; Combined studies MEDICAL HISTORY : Cardiovascular disease. Hypertension. SURGICAL HISTORY : Inguinal hernia repair. ENCOUNTER: Initial ACUITY: 2 days PAIN SCALE: 0/10 LOCATION: Bilateral carotids Elevated flow velocities and ICA/CCA ratios have been found to correlate with increased degrees of vessel stenosis, calculated as percentage of diameter relative to a normal segment of distal ICA/CCA. TECHNIQUE: Volumetric scanning was performed using a multirow detector CT scanner. The data was post processed with a variety of visualization algorithms including full-volume maximum intensity projection, multip lanar sliding thin-slab reformation, curved-planar reformation, and surface-rendering techniques. Us ing automated exposure control and adjustment of the mA and/or kV according to patient size, radiatio n dose was kept as low as reasonably achievable to obtain optimal diagnostic quality images. DICOM f ormat image data is available electronically for review and comparison. FINDINGS: AORTIC ARCH: There is a three-vessel origin of the great vessels from the aorta. No evidence of ostial narrowing. RIGHT CAROTID: Abnormal. The common carotid artery is of normal size vessel. There is 50% narrowing of the origin of the internal carotid artery and there is severe stenosis in the mid internal carotid artery approx imately 1.5 cm distal to its origin with eccentric severe luminal narrowing measured at greater than 85% narrowing. The involved segment measures 1.6 cm in length, the critical stenosis measures 6 mm i n length. LEFT CAROTID: The common carotid artery is intact. The carotid bulb has a normal configuration without ulceration or narrowing. The internal carotid artery lumen is smooth without stenosis. The external carotid ar saad is intact. VERTEBRALS: The vertebral arteries have a symmetric diameter. No stenotic lesions are seen. CONCLUSION: Severe right internal carotid stenosis with a segment segment measuring 1.5 cm length with greater th an 85% stenosis. Milder (50%) stenosis is also present at the origin of the right internal carotid a rtery. Easton Rainey MD on May 05, 2017 at 20:05 Board Certified Radiologist. This report was verified electronically.
[2017-05-05] MEDS: ATORVASTATIN 40 MG TAB PO SCH (20:58)
[2017-05-05] MEDS: HEPARIN SODIUM - SQ 10,000 UNITS/ML VIAL SQ SCH (20:58)
[2017-05-05] MEDS ORDERED: ATORVASTATIN 10 MG TAB PO SCH (21:00)
[2017-05-06] MEDS: SODIUM CHLOR 0.9% 1000 ML INJ 1,000 ML IV SCH (02:06)
[2017-05-06 03:56] VITALS: BP 162/74; PULSE 53; RESP 16; TEMP 97.6; O2SAT 95
[2017-05-06] MEDS: HEPARIN SODIUM - SQ 10,000 UNITS/ML VIAL SQ SCH ×3 (05:00→21:24)
[2017-05-06] MEDS: ASPIRIN 325 MG TAB PO SCH (07:29)
[2017-05-06] MEDS: SODIUM CHLORIDE 0.9% FLUSH 5 ML FLUSH IV FLUSH SCH ×2 (07:29→21:00)
[2017-05-06 07:55] VITALS: PULSE 46
--- NOTE | 2017-05-06 08:00 | PD.VS.PN ---
Subjective Subjective/Hospital Course Pt doing well overnight. Since having L finger numbness on way back from MRI yesterday midday, no more episodes last night Objective Vitals/I&O Date Time Temp Pulse Resp B/P Pulse Ox O2 Delivery O2 Flow Rate FiO2 05/06/17 07:55 46 05/06/17 03:56 97.6 53 16 162/74 95 05/05/17 23:39 98.1 56 18 146/82 98 05/05/17 20:58 97.8 58 18 159/84 97 05/05/17 16:09 97.9 61 20 166/81 96 05/05/17 12:09 97.7 59 20 150/78 96 05/05/17 08:05 97.5 61 20 167/85 95 Physical Exam Neuro intact Good B UE strength Laboratory Laboratory Tests Test 05/05/17 09:16 Hemoglobin A1c 5.6 Triglycerides Level 142 Cholesterol Level 166 LDL Cholesterol 102 HDL Cholesterol 35.5 Cholesterol/HDL Ratio 4.67 Imaging Last 48 hours Impressions Neck CTA 05/05/17 0000 Signed Impressions: Service Date/Time: Friday, May 05, 2017 18:56 - CONCLUSION: Severe right internal carotid stenosis with a segment segment measuring 1.5 cm length with greater than 85%% stenosis. Milder (50%%) stenosis is also present at the origin of the right internal carotid artery. Easton Rainey MD Head CTA 05/05/17 0000 Signed Impressions: Service Date/Time: Friday, May 05, 2017 18:56 - CONCLUSION: 1. 50%% narrowing of the proximal right M1 segment with contrast seen within the right MCA branch vessels. No focal occlusions seen. 2. Incomplete [place]. Easton Rainey MD Brain MRI 05/05/17 0000 Signed Impressions: Service Date/Time: Friday, May 05, 2017 12:29 - CONCLUSION: 1. Multiple small infarcts in the right MCA distribution. No mass effect or shift. José Miguel Valentin MD Head CT 05/04/172126 Signed Impressions: Service Date/Time: Thursday, May 04, 2017 21:51 - CONCLUSION: Negative noncontrast CT brain. Easton Rainey MD Assessment and Plan Assessment: (1) Carotid arterial disease Status: Acute Plan Pt seen and examined. He likely had a symptomatic TIA from his R ICA stenosis. CTA of neck shows significant stenosis, albeit high lesion, I think it is still amenable to CEA Discussed CEA with patient again this morning. Plan R CEA for first thing Rigoberto Worthy MD FACS RPVI appeals examiner [facility] - [facility] V[facility] [phone] Problem Qualifiers (1) Carotid arterial disease: Qualified Code: I77.9 - Right-sided carotid artery disease Rigoberto Worthy MD May 06, 2017 08:00
[2017-05-06 08:10] VITALS: BP 171/86; PULSE 56; RESP 20; TEMP 97.9; O2SAT 97
--- NOTE | 2017-05-06 11:01 | HHI.PR ---
Subjective Remarks resting comfortably with no distress. no complaints. Objective Vitals Vital Signs Date Time Temp Pulse Resp B/P Pulse Ox O2 Delivery O2 Flow Rate FiO2 05/06/17 08:10 97.9 56 20 171/86 97 05/06/17 07:55 46 05/06/17 03:56 97.6 53 16 162/74 95 05/05/17 23:39 98.1 56 18 146/82 98 05/05/17 20:58 97.8 58 18 159/84 97 05/05/17 16:09 97.9 61 20 166/81 96 05/05/17 12:09 97.7 59 20 150/78 96 I/O 05/05/17 05/05/17 05/05/17 05/06/17 05/06/17 05/06/17 07:00 15:00 23:00 07:00 15:00 23:00 Intake Total 240 ml 480 ml 480 ml Balance 240 ml 480 ml 480 ml Intake Oral 240 ml 480 ml IV Total 480 ml # Voids 4 2 # Bowel Movements 1 Result Diagram: 05/04/17 2100 05/04/17 2100 Imaging Last Impressions Neck CTA 05/05/17 0000 Signed Impressions: Service Date/Time: Friday, May 05, 2017 18:56 - CONCLUSION: Severe right internal carotid stenosis with a segment segment measuring 1.5 cm length with greater than 85%% stenosis. Milder (50%%) stenosis is also present at the origin of the right internal carotid artery. Easton Rainey MD Head CTA 05/05/17 0000 Signed Impressions: Service Date/Time: Friday, May 05, 2017 18:56 - CONCLUSION: 1. 50%% narrowing of the proximal right M1 segment with contrast seen within the right MCA branch vessels. No focal occlusions seen. 2. Incomplete [place]. Easton Rainey MD Brain MRI 05/05/17 0000 Signed Impressions: Service Date/Time: Friday, May 05, 2017 12:29 - CONCLUSION: 1. Multiple small infarcts in the right MCA distribution. No mass effect or shift. José Miguel Valentin MD Head CT 05/04/172126 Signed Impressions: Service Date/Time: Thursday, May 04, 2017 21:51 - CONCLUSION: Negative noncontrast CT brain. Easton Rainey MD Carotid Artery Ultrasound 05/04/17 0000 Signed Impressions: Service Date/Time: Thursday, May 04, 2017 22:37 - CONCLUSION: 1. Abnormal right carotid with significantly elevated peak systolic velocity and velocity ratio, characteristic of 70-90%% stenosis. 2. Mild plaque formation in the left carotid with hemodynamic profile characteristic of less than 50%% stenosis. Easton Rainey MD Objective Remarks GENERAL: This is a well-nourished, well-developed patient, in no apparent distress. CARDIOVASCULAR: Regular rate and regular rhythm without murmurs, gallops, or rubs. RESPIRATORY: Clear to auscultation. Breath sounds equal bilaterally. No wheezes , rales, or rhonchi. GASTROINTESTINAL: Abdomen soft, non-tender, nondistended. Normal, active bowel sounds MUSCULOSKELETAL: Extremities without clubbing, cyanosis, or edema. NEURO: Alert & Oriented x4 to person, place, time, situation. Moves all ext x4 Medications and IVs Current Medications Sodium Chloride (NS 1000 ml Inj) 1,000 ml @ 70 mls/hr [id number] IV Last administered on 05/06/17 02:06; Start 05/04/17 at 21:30 IV Flush (NS Flush) 2 ml BID IV FLUSH Last administered on 05/05/17 20:58; Start 05/05/17 at 09:00 IV Flush (NS Flush) 2 ml UNSCH PRN IV FLUSH FLUSH AFTER USING IV ACCESS; Start 05/04/17 at 22:45 Dipyridamole/ Aspirin (Aggrenox 200-25 Mg) 1 cap ONCE ONCE PO Last administered on 05/05/17 01:42; Start 05/05/17 at 00:00; Stop 05/05/17 at 00:01; Status DC Dipyridamole/ Aspirin (Aggrenox 200-25 Mg) 1 cap Q12HR PO Last administered on 05/05/17 07:44; Start 05/05/17 at 09:00; Stop 05/05/17 at 15:57; Status DC Enoxaparin Sodium (Lovenox Inj) 40 mg Q24H SQ Last administered on 05/05/17 07: 44; Start 05/05/17 at 09:00; Stop 05/05/17 at 15:57; Status DC Acetaminophen (Tylenol) 650 mg Q4H PRN PO HEADACHE/ FEVER/PAIN 1-10 Last administered on 05/05/17 11:43; Start 05/05/17 at 11:30 Atorvastatin Calcium (Lipitor) 10 mg HS PO ; Start 05/05/17 at 21:00; Stop at 21:00; Status DC Amlodipine Besylate (Norvasc) 10 mg DAILY PO Last administered on 05/06/17 07: 28; Start 05/06/17 at 09:00 Atorvastatin Calcium (Lipitor) 40 mg HS PO Last administered on 05/05/17 20:58 ; Start 05/05/17 at 21:00 Heparin Sodium (Porcine) (Heparin Inj) 5,000 units Q8HR SQ Last administered on 05/06/17 05:00; Start 05/05/17 at 22:00 Aspirin (Aspirin) 325 mg DAILY PO Last administered on 05/06/17 07:29; Start at 16:15 Iohexol (Omnipaque 350 Inj) 70 ml [employer]-MED ONCE IV Last administered on 19:38; Start 05/05/17 at 19:38; Stop 05/05/17 at 19:39; Status DC A/P Assessment and Plan A/P CVA with carotid artery disease continue aspirin and statin vascular surgery evaluation appreciated and plan for right CEA tomorrow. neurology and vascular surgery following. History of hypertension- resumed amlodipine continue to monitor and adjust the regimen as needed. History of hyperlipidemia- on statin DVT prophylaxis with subq Heparin. Charla Washington MD May 06, 2017 11:00 Charla Washington MD May 06, 2017 11:00
[2017-05-06 12:03] VITALS: BP 150/76; PULSE 64; RESP 20; TEMP 98.1; O2SAT 97
[2017-05-06 15:58] VITALS: BP 154/86; PULSE 58; RESP 20; TEMP 98.1; O2SAT 98
[2017-05-06 21:04] VITALS: BP 169/79; PULSE 59; RESP 16; TEMP 98; O2SAT 96
[2017-05-06] MEDS: ATORVASTATIN 40 MG TAB PO SCH (21:24)
[2017-05-07] VITALS (8 sets, daily range): BP systolic 151–173; BP diastolic 66–94; PULSE 55–96; RESP 16–20; TEMP 97.5–98.2; O2SAT 93–97
[2017-05-07] MEDS: SODIUM CHLOR 0.9% 1000 ML INJ 1,000 ML IV SCH ×2 (05:43→21:00)
[2017-05-07] MEDS: HEPARIN SODIUM - SQ 10,000 UNITS/ML VIAL SQ SCH (05:44)
[2017-05-07] MEDS ORDERED: MIDAZOLAM HCL 2 MG/2 ML VIAL ONE (07:02)
[2017-05-07] MEDS ORDERED: DEXAMETHASONE SOD PHOS 4 MG/ML VIAL ONE (07:02)
[2017-05-07] MEDS ORDERED: FAMOTIDINE 20 MG/2 ML VIAL ONE (07:04)
[2017-05-07] MEDS ORDERED: VANCOMYCIN HCL 1000 MG VIAL ONE (07:11)
[2017-05-07] MEDS ORDERED: HEPARIN SODIUM - IV 10,000 UNITS/10 ML VIAL ONE (07:11)
[2017-05-07] MEDS ORDERED: ceFAZolin 2 GM PREMIX 50 ML ONE (07:12)
[2017-05-07] MEDS ORDERED: PROTAMINE SULFATE 50 MG/5 ML VIAL ONE (07:12)
[2017-05-07] MEDS ORDERED: LIDOCAINE HCL 1% 20 ML VIAL ONE (07:12)
[2017-05-07] MEDS ORDERED: THROMBIN (TOPICAL) 20,000 UNIT SPRAY KIT ONE (07:23)
[2017-05-07] MEDS ORDERED: DEXMEDETOMIDINE HCL 200 MCG/2 ML VIAL ONE (07:40)
[2017-05-07] MEDS ORDERED: ACETAMINOPHEN 1000 MG/100 ML VIAL IV ONE (07:40)
[2017-05-07] MEDS: ASPIRIN 325 MG TAB PO SCH (09:00)
[2017-05-07] MEDS: SODIUM CHLORIDE 0.9% FLUSH 5 ML FLUSH IV FLUSH SCH ×2 (09:00→21:00)
[2017-05-07] MEDS ORDERED: BUPIVACAINE/EPINEPHRINE 0.5% PF 30 ML VIAL ONE (09:31)
[2017-05-07] MEDS ORDERED: BUPIVACAINE HCL PF 0.5% 30 ML VIAL ONE (09:32)
--- NOTE | 2017-05-07 11:17 | HHI.PR ---
Immediate Post Op Note Procedure Date: May 07, 2017 Pre Op Diagnosis: symptomatic R carotid stenosis Post Op Diagnosis: symptomatic R carotid stenosis Surgeon: Rigoberto Worthy Optical Sales Associate(s): Stefania George Procedure: R CEA Findings: high thrombotic plaque Additional Information: awake neuro intact Complications: none apparent Specimen(s) removed: plaque, not for pathology Estimated blood loss: 50mL Anesthesia: General Drains: None Fluids: 1200mL x'oid; 450mL UOP IVF Patient to: Other ([facility]) Patient Condition: Good Implant/Devices: SEE IMPLANT LOG (if applicable) Date/Time of Procedure: SEE SURGICAL CARE RECORD Rigoberto Worthy MD May 07, 2017 11:17
[2017-05-07] MEDS ORDERED: fentaNYL CITRATE 250 MCG/5 ML AMP ONE ×2 (11:35)
[2017-05-07] MEDS: D5-1/2 NS + KCL 20 MEQ INJ 1,000 ML IV SCH (11:56)
[2017-05-07] MEDS ORDERED: SODIUM CHLOR 0.9% 250 ML INJ 250 ML IV ONE (12:00)
[2017-05-07] MEDS ORDERED: PHENYLEPHRINE HCL 10 MG/ML VIAL IV ONE (12:00)
[2017-05-07] MEDS ORDERED: SODIUM CHLORID 0.9% 500 ML INJ 500 ML IV ONE (12:00)
[2017-05-07] MEDS ORDERED: PROPOFOL 200 MG/20 ML AMP IV ONE (12:00)
[2017-05-07] MEDS ORDERED: ONDANSETRON HCL 4 MG/2 ML VIAL IV PUSH ONE (12:00)
[2017-05-07] MEDS ORDERED: FLUMAZENIL 1 MG/10 ML VIAL IV ONE (12:00)
[2017-05-07] MEDS ORDERED: ePHEDrine/NS 50 MG/5 ML SYR IV ONE (12:00)
--- NOTE | 2017-05-07 12:18 | MP ---
cc: JOSÉ WORTHY MD DATE OF SURGERY 05/07/2017 POSTOPERATIVE DIAGNOSIS Symptomatic right carotid stenosis POSTOPERATIVE DIAGNOSIS Symptomatic right carotid stenosis PROCEDURE Right carotid endarterectomy MEDICATIONS José Worthy MD BROOM MAN SURGEON Stefania George ANESTHESIA General INDICATIONS Mr. Redding is a 71 year-old gentleman with a symptomatic right carotid stenosis that manifests as recurrent TIAs which were left hand numbness. After thorough imaging and description of the procedure, he was offered a carotid endarterectomy. PROCEDURE NOTE The patient was cleared for the procedure, informed consent was obtained from the patient. He was taken to the operating room, placed supine on the operating table. An appropriate time-out was taken to ensure the patient's identify, the operative site and planned procedure. Administration of two grams Ancef was administered prior to the skin incision and will be discontinued after a single preoperative dose. Everyone in the room agreed with the time-out and we proceeded. He was nasotracheally intubated due to the high location of the lesion and the patient's right neck was prepped and draped. An incision was made along the anterior border of sternocleidomastoid, carried down through the subcutaneous tissue with electrocautery. The facial vein was identified and ligated between the 3-0 silks. The common carotid artery was dissected free and encircled with a Vesseloop. The carotid bifurcation was identified. The superior thyroid artery and external carotid artery was circumferentially dissected free. The hypoglossal nerve was identified and dissected free and the very high internal carotid artery was dissected free circumferentially. At this point, the patient was systemically heparinized. The ACT was confirmed to be greater than 250. Distal and proximal control of the internal and common carotid arteries respectively were obtained with profunda clamps and a longitudinal arteriotomy was made with an 11 blade and extended with [place] scissors. The external carotid had also been controlled with a profunda clamp. The carotid plaque was noted to be quite soft and the carotid was endarterectomized without difficulty. A nice endpoint was achieved and two tacking sutures were placed. Bovine pericardial patch was then sewn using running 5-0 Prolene suture. At the completion, it was flushed and noted to be hemostatic. The clamps released in sequence. Throughout the entire clamping and releasing of the clamps, the there were no neurological events on the intraoperative neurological EEG monitoring. The wound was made hemostatic. The patch was hemostatic. The heparin was reversed with protamine and the wound was closed with 2-0 Polysorb, 3-0 Polysorb and 4-0 Monocryl. At the end the case, the patient was awoken from anesthesia, moving all four extremities prior to transitioning to the cardiac ICU. MD MARGOT Stevens/RODGER /11:40 AM /12:04 PM
--- NOTE | 2017-05-07 13:31 | HHI.PR ---
Subjective Remarks had right CEA earlier today. now is comfortable with no distress. denies pain. family at the bedside. d/w the RN. Objective Vitals Vital Signs Date Time Temp Pulse Resp B/P Pulse Ox O2 Delivery O2 Flow Rate FiO2 05/07/17 12:00 96 05/07/17 06:56 98.1 66 20 173/82 97 05/07/17 04:00 98.2 66 18 165/93 93 05/07/17 01:06 98.1 55 16 155/85 94 05/06/17 21:04 98.0 59 16 169/79 96 05/06/17 15:58 98.1 58 20 154/86 98 I/O 05/06/17 05/06/17 05/06/17 05/07/17 05/07/17 05/07/17 07:00 15:00 23:00 07:00 15:00 23:00 Intake Total 480 ml 480 ml 410 ml Balance 480 ml 480 ml 410 ml Intake Oral 480 ml 480 ml IV Total 410 ml # Voids 2 6 4 # Bowel Movements 2 0 Result Diagram: 05/04/17 2100 05/04/17 2100 Imaging Last Impressions Neck CTA 05/05/17 0000 Signed Impressions: Service Date/Time: Friday, May 05, 2017 18:56 - CONCLUSION: Severe right internal carotid stenosis with a segment segment measuring 1.5 cm length with greater than 85%% stenosis. Milder (50%%) stenosis is also present at the origin of the right internal carotid artery. Easton Rainey MD Head CTA 05/05/17 0000 Signed Impressions: Service Date/Time: Friday, May 05, 2017 18:56 - CONCLUSION: 1. 50%% narrowing of the proximal right M1 segment with contrast seen within the right MCA branch vessels. No focal occlusions seen. 2. Incomplete [place]. Easton Rainey MD Brain MRI 05/05/17 0000 Signed Impressions: Service Date/Time: Friday, May 05, 2017 12:29 - CONCLUSION: 1. Multiple small infarcts in the right MCA distribution. No mass effect or shift. José Miguel Valentin MD Head CT [id number]/04/[id number] Signed Impressions: Service Date/Time: Thursday, May 04, 2017 21:51 - CONCLUSION: Negative noncontrast CT brain. Easton Rainey MD Carotid Artery Ultrasound 05/04/17 0000 Signed Impressions: Service Date/Time: Thursday, May 04, 2017 22:37 - CONCLUSION: 1. Abnormal right carotid with significantly elevated peak systolic velocity and velocity ratio, characteristic of 70-90%% stenosis. 2. Mild plaque formation in the left carotid with hemodynamic profile characteristic of less than 50%% stenosis. Easton Rainey MD Objective Remarks GENERAL: This is a well-nourished, well-developed patient, in no apparent distress. CARDIOVASCULAR: Regular rate and regular rhythm without murmurs, gallops, or rubs. RESPIRATORY: Clear to auscultation. Breath sounds equal bilaterally. No wheezes , rales, or rhonchi. GASTROINTESTINAL: Abdomen soft, non-tender, nondistended. Normal, active bowel sounds MUSCULOSKELETAL: Extremities without clubbing, cyanosis, or edema. NEURO: Alert & Oriented x4 to person, place, time, situation. Moves all ext x4 Procedures right carotid endarterectomy. Medications and IVs Current Medications Sodium Chloride (NS 1000 ml Inj) 1,000 ml @ 70 mls/hr [id number] IV Last administered on 05/07/17 05:43; Start 05/04/17 at 21:30 IV Flush (NS Flush) 2 ml BID IV FLUSH Last administered on 05/07/17 09:00; Start 05/05/17 at 09:00 IV Flush (NS Flush) 2 ml UNSCH PRN IV FLUSH FLUSH AFTER USING IV ACCESS; Start 05/04/17 at 22:45 Dipyridamole/ Aspirin (Aggrenox 200-25 Mg) 1 cap ONCE ONCE PO Last administered on 05/05/17 01:42; Start 05/05/17 at 00:00; Stop 05/05/17 at 00:01; Status DC Dipyridamole/ Aspirin (Aggrenox 200-25 Mg) 1 cap Q12HR PO Last administered on 05/05/17 07:44; Start 05/05/17 at 09:00; Stop 05/05/17 at 15:57; Status DC Enoxaparin Sodium (Lovenox Inj) 40 mg Q24H SQ Last administered on 05/05/17 07: 44; Start 05/05/17 at 09:00; Stop 05/05/17 at 15:57; Status DC Acetaminophen (Tylenol) 650 mg Q4H PRN PO HEADACHE/ FEVER/PAIN 1-10 Last administered on 05/05/17 11:43; Start 05/05/17 at 11:30 Atorvastatin Calcium (Lipitor) 10 mg HS PO ; Start 05/05/17 at 21:00; Stop at 21:00; Status DC Amlodipine Besylate (Norvasc) 10 mg DAILY PO Last administered on 05/06/17 07: 28; Start 05/06/17 at 09:00 Atorvastatin Calcium (Lipitor) 40 mg HS PO Last administered on 05/06/17 21:24 ; Start 05/05/17 at 21:00 Heparin Sodium (Porcine) (Heparin Inj) 5,000 units Q8HR SQ Last administered on 05/07/17 05:44; Start 05/05/17 at 22:00; Stop 05/07/17 at 12:28; Status DC Aspirin (Aspirin) 325 mg DAILY PO Last administered on 05/06/17 07:29; Start at 16:15 Iohexol (Omnipaque 350 Inj) 70 ml STK-MED ONCE IV Last administered on 19:38; Start 05/05/17 at 19:38; Stop 05/05/17 at 19:39; Status DC Midazolam HCl (Versed Inj) 2 mg STK-MED ONCE .ROUTE ; Start 05/07/17 at 07:02; Stop 05/07/17 at 07:03; Status DC Dexamethasone Sodium Phosphate (Decadron Inj) 4 mg STK-MED ONCE .ROUTE ; Start 05/07/17 at 07:02; Stop 05/07/17 at 07:03; Status DC Famotidine (Pepcid Inj) 20 mg STK-MED ONCE .ROUTE ; Start 05/07/17 at 07:04; Stop 05/07/17 at 07:05; Status DC Heparin Sodium (Porcine) (Heparin Inj) 20,000 units STK-MED ONCE .ROUTE Last administered on 05/07/17 08:50; Start 05/07/17 at 07:11; Stop 05/07/17 at 07:12; Status DC Vancomycin HCl 2000 mg 2,000 mg STK-MED ONCE .ROUTE ; Start 05/07/17 at 07:11; Stop 05/07/17 at 07:12; Status DC Cefazolin Sodium/ Dextrose (Ancef 2 Gm Premix) 50 ml @ As Directed STK-MED ONCE .ROUTE Last administered on 05/07/17 08:22; Start 05/07/17 at 07:12; Stop at 07:13; Status DC Protamine Sulfate (Protamine Sulfate Inj) 50 mg STK-MED ONCE .ROUTE ; Start 05/07 at 07:12; Stop 05/07/17 at 07:13; Status DC Lidocaine HCl (Xylocaine 1% Inj) 20 ml STK-MED ONCE .ROUTE Last administered on 05/07/17 09:48; Start 05/07/17 at 07:12; Stop 05/07/17 at 07:13; Status DC Thrombin (Thrombin Top [place]) 20,000 units STK-MED ONCE .ROUTE Last administered on 05/07/17 10:02; Start 05/07/17 at 07:23; Stop 05/07/17 at 07:24; Status DC Dexmedetomidine HCl (Precedex Inj) 200 mcg STK-MED ONCE .ROUTE ; Start 05/07/17 at 07:40; Stop 05/07/17 at 07:41; Status DC Acetaminophen (Ofirmev Inj) 1,000 mg STK-MED ONCE IV ; Start 05/07/17 at 07:40; Stop 05/07/17 at 07:41; Status DC Bupivacaine HCl/ Epinephrine Bitart (Sensorcaine-Epinephrine Pf 0.5% Inj) 30 ml STK-MED ONCE .ROUTE ; Start 05/07/17 at 09:31; Stop 05/07/17 at 09:32; Status DC Bupivacaine HCl 30 ml 30 ml STK-MED ONCE .ROUTE Last administered on 05/07/17 09:48; Start 05/07/17 at 09:32; Stop 05/07/17 at 09:33; Status DC Potassium Chloride/Dextrose/ Sod Cl (D5-1/2 NS + KCl 20 Meq Inj) 1,000 ml @ 42 mls/hr [id number] IV Last administered on 05/07/17 11:56; Start 05/07/17 at 11:17 Heparin Sodium (Porcine) (Heparin Inj) 5,000 units Q8H SQ ; Start 05/08/17 at 10: 00 Fentanyl Citrate (fentaNYL INJ) 250 mcg STK-MED ONCE .ROUTE ; Start 05/07/17 at 11:35; Stop 05/07/17 at 11:36; Status DC Fentanyl Citrate (fentaNYL INJ) 250 mcg STK-MED ONCE .ROUTE ; Start 05/07/17 at 11:35; Stop 05/07/17 at 11:36; Status DC A/P Assessment and Plan A/P CVA with carotid artery disease continue aspirin and statin vascular surgery evaluation appreciated - s/p right carotid endarterectomy neurology and vascular surgery following. History of hypertension- resumed amlodipine continue to monitor and adjust the regimen as needed. History of hyperlipidemia- on statin DVT prophylaxis with subq Heparin. Discharge Planning when cleared by vascular surgery. Charla Washington MD May 07, 2017 13:30
[2017-05-07] MEDS ORDERED: METOPROLOL TARTRATE 5 MG/5 ML VIAL ONE (15:16)
[2017-05-07] MEDS: METOPROLOL TARTRATE 5 MG/5 ML VIAL IV PUSH PRN (15:47)
[2017-05-07] MEDS: ATORVASTATIN 40 MG TAB PO SCH (20:58)
[2017-05-07] MEDS: ACETAMINOPHEN 325 MG TAB PO PRN (20:58)
[2017-05-07] MEDS: hydrALAZINE HCL 20 MG/ML VIAL IV PUSH PRN (21:51)
[2017-05-08] VITALS (9 sets, daily range): BP systolic 142–174; BP diastolic 54–84; PULSE 74–104; RESP 18–22; TEMP 98.3–99; O2SAT 93–97
[2017-05-08] MEDS: METOPROLOL TARTRATE 5 MG/5 ML VIAL IV PUSH PRN (00:35)
[2017-05-08] MEDS: ACETAMINOPHEN 325 MG TAB PO PRN ×3 (00:40→21:23)
[2017-05-08] MEDS: hydrALAZINE HCL 20 MG/ML VIAL IV PUSH PRN ×3 (04:08→22:09)
[2017-05-08 05:34] LABS: HEMATOCRIT 43.1 % (39.0-51.0); MEAN CELL VOLUME 88.6 FL (80.0-100.0); MEAN CORPUSCULAR HEMOGLOBIN 29.8 PG (27.0-34.0); MEAN CORPUSCULAR HGB CONC 33.6 % (32.0-36.0); PLATELET COUNT 237 TH/MM3 (150-450); RED BLOOD COUNT 4.86 MIL/MM3 (4.50-5.90); REVIEW FLAG FINAL; WHITE BLOOD COUNT 19.2 TH/MM3 (4.0-11.0)
[2017-05-08 06:06] LABS: POTASSIUM 3.7 MEQ/L (3.5-5.1)
--- NOTE | 2017-05-08 08:13 | HHI.PR ---
Review/Management Diagnosis/Plan: (1) Acute ischemic right MCA stroke Plan: stroke non-disabling at present mri+ rt mca embolic strokes likely 2/2 symptomatic rt carotid s/p rt cea recs neuro stable p.t. on aspirin/statin; was on aspirin before stroke. would change to plavix and d/ c aspirin when feasible with vascular surgery a d/c planning (2) Carotid arterial disease Plan: symptomatic rt carotid stenosis- s/p rt cea (3) HTN (hypertension) Subjective Subjective Comments No acute events reported No headache No chest pain No dyspnea Active Medications Current Medications Medications (Trade) Dose Ordered Sig/Rai Route Start Time Stop Time Status Last Admin (NS 1000 ml Inj) 1,000 ml @ 70 mls/hr [id number] IV 05/04/17 21:30 05/07/17 05:43 (NS Flush) 2 ml BID IV FLUSH 05/05/17 09:00 05/07/17 21:00 (NS Flush) 2 ml UNSCH PRN IV FLUSH 05/04/17 22:45 (Tylenol) 650 mg Q4H PRN PO 05/05/17 11:30 05/08/17 06:07 (Norvasc) 10 mg DAILY PO 05/06/17 09:00 05/08/17 06:47 (Lipitor) 40 mg HS PO 05/05/17 21:00 05/07/17 20:58 Aspirin 325 mg 325 mg DAILY PO 05/05/17 16:15 05/06/17 07:29 (D5-1/2 NS + KCl 20 Meq Inj) 1,000 ml @ 42 mls/hr [id number] IV 05/07/17 11:17 05/07/17 11:56 (Heparin Inj) 5,000 units Q8H SQ 05/08/17 10:00 (Lopressor Inj) 5 mg Q2HR PRN IV PUSH 05/07/17 15:45 05/08/17 00:35 (Apresoline Inj) 10 mg Q2H PRN IV PUSH 05/07/17 21:45 05/08/17 04:08 Allergies Allergies Coded Allergies No Known Allergies (Unverified05/04/17) Review of Systems All other ROS: ROS reviewed as documented in chart Exam I&O / VS 05/07/17 05/07/17 05/08/17 14:59 22:59 06:59 Intake Total 1586 ml 939 ml Output Total 750 ml 855 ml Balance 836 ml 84 ml Intake Oral 100 ml 480 ml IV Total 1486 ml 459 ml Output Urine Total 750 ml 855 ml # Bowel Movements 0 0 Vital Signs Date Time Temp Pulse Resp B/P Pulse Ox O2 Delivery O2 Flow Rate FiO2 05/08/17 07:00 93 05/08/17 04:00 98.6 74 18 161/82 95 165/60 05/08/17 03:50 76 05/08/17 01:45 18 05/08/17 00:00 77 05/08/17 00:00 99.0 76 18 151/73 94 174/54 05/07/17 21:45 95 21 05/07/17 20:00 97.5 65 18 172/94 94 172/66 05/07/17 19:30 64 05/07/17 15:00 98.0 79 18 166/91 96 165/69 05/07/17 15:00 96 05/07/17 12:00 96 05/07/17 12:00 97.5 74 16 159/88 97 151/66 General: Alert and Oriented, No acute distress Eye: EOMI Respiratory: Non-labored respirations Neurologic: Alert, Oriented, Normal sensory, CN II-XII intact, Normal DTR's Psychiatric: Cooperative, Appropriate mood & affect, Normal judgement, Non- suicidal Exam Comments ox x , no aphasia, no neglect, eomi, vff, face sym, tongue midline, left ue minimal dystaxia, no drift, able to raise all 4 ext to gravity >10 secs, gait not assessed 2/2 fall risk Objective Micro and Labs Laboratory Tests Test 05/07/17 05/08/17 08:50 04:15 Blood Type A POSITIVE Antibody Screen NEGATIVE Blood Bank Comment White Blood Count 19.2 Red Blood Count 4.86 Hemoglobin 14.5 Hematocrit 43.1 Mean Corpuscular Volume 88.6 Mean Corpuscular Hemoglobin 29.8 Mean Corpuscular Hemoglobin 33.6 Concent Red Cell Distribution Width 13.0 Platelet Count 237 Mean Platelet Volume 8.2 Sodium Level 140 Potassium Level 3.7 Chloride Level 107 Carbon Dioxide Level 24.0 Anion Gap 9 Blood Urea Nitrogen 13 Creatinine 0.95 Estimat Glomerular Filtration 78 Rate Random Glucose 124 Calcium Level 8.1 Problem Qualifiers (1) Carotid arterial disease: Qualified Code: I77.9 - Right-sided carotid artery disease (2) HTN (hypertension): Qualified Code: I10 - Essential hypertension Rey Da Silva MD May 08, 2017 08:13
[2017-05-08] MEDS: SODIUM CHLORIDE 0.9% FLUSH 5 ML FLUSH IV FLUSH SCH ×2 (08:46→21:00)
[2017-05-08] MEDS: ASPIRIN 325 MG TAB PO SCH (08:46)
[2017-05-08] MEDS: HEPARIN SODIUM - SQ 10,000 UNITS/ML VIAL SQ SCH ×2 (08:46→18:00)
--- NOTE | 2017-05-08 09:02 | PD.VS.PN ---
Subjective POD #: 1 Procedure(s): R CEA Subjective/Hospital Course Neuro intact this morning Slight facial asymmetry Normal tongue protrusion no FELIPE no swallowing trouble Objective Vitals/I&O Date Time Temp Pulse Resp B/P Pulse Ox O2 Delivery O2 Flow Rate FiO2 05/08/17 08:46 18 05/08/17 07:00 93 05/08/17 04:00 98.6 74 18 161/82 95 165/60 05/08/17 03:50 76 05/08/17 00:00 77 05/08/17 00:00 99.0 76 18 151/73 94 174/54 05/07/17 21:45 95 21 05/07/17 20:00 97.5 65 18 172/94 94 172/66 05/07/17 19:30 64 05/07/17 15:00 98.0 79 18 166/91 96 165/69 05/07/17 15:00 96 05/07/17 12:00 96 05/07/17 12:00 97.5 74 16 159/88 97 151/66 Exam: R neck ok SOMERS, no focal deficits Laboratory Laboratory Tests Test 05/08/17 04:15 White Blood Count 19.2 Red Blood Count 4.86 Hemoglobin 14.5 Hematocrit 43.1 Mean Corpuscular Volume 88.6 Mean Corpuscular Hemoglobin 29.8 Mean Corpuscular Hemoglobin 33.6 Concent Red Cell Distribution Width 13.0 Platelet Count 237 Mean Platelet Volume 8.2 Sodium Level 140 Potassium Level 3.7 Chloride Level 107 Carbon Dioxide Level 24.0 Anion Gap 9 Blood Urea Nitrogen 13 Creatinine 0.95 Estimat Glomerular Filtration 78 Rate Random Glucose 124 Calcium Level 8.1 Assessment and Plan Assessment: (1) Carotid arterial disease Status: Acute Plan Neuro intact after R CEA Normalize D/C a-line and day potential home later today Rigoberto Worthy MD FACS RPVI button breaker [facility] [phone] Problem Qualifiers (1) Carotid arterial disease: Qualified Code: I77.9 - Right-sided carotid artery disease Rigoberto Worthy MD May 08, 2017 09:02
[2017-05-08 09:22] LABS: I-STAT POTASSIUM 3.8 MMOL/L (3.5-4.9); I-STAT SODIUM 141 MMOL/L (138-146)
[2017-05-08 09:23] LABS: AUTOMATED NEUTROPHIL # 18.1 TH/MM3 (1.8-7.7); BASOPHIL # 0.2 TH/MM3 (0-0.2); BASOPHIL % 0.9 % (0.0-2.0); EOSINOPHIL # 0.1 TH/MM3 (0-0.4); EOSINOPHIL % 0.4 % (0.0-4.0); HEMATOCRIT 44.5 % (39.0-51.0); HEMO FLAGS DIFF FINAL; LYMPH % 11.9 % (9.0-44.0); LYMPHOCYTE # 2.7 TH/MM3 (1.0-4.8); MEAN CELL VOLUME 89.1 FL (80.0-100.0); MEAN CORPUSCULAR HGB CONC 33.6 % (32.0-36.0); MONO % 7.1 % (0.0-8.0); NEUT % 79.7 % (16.0-70.0); PLATELET COUNT 249 TH/MM3 (150-450); RED BLOOD COUNT 4.99 MIL/MM3 (4.50-5.90); RED CELL DISTRIBUTION WIDTH 13.1 % (11.6-17.2); WHITE BLOOD COUNT 22.7 TH/MM3 (4.0-11.0)
[2017-05-08] MEDS ORDERED: IODIXANOL 320 MG/ML 10 ML VIAL (for Rad CT) IV ONE (09:24)
--- NOTE | 2017-05-08 09:24 | RADRPT ---
EXAM DATE/TIME: 05/08/2017 09:12 [facility] COMPARISON: CTA BRAIN W 3D RECON, May 05, 2017, 18:56. MRI BRAIN W/O CONTRAST, May 05, 2017, 12:29. CT BR AIN W/O CONTRAST, May 04, 2017, 21:51. INDICATIONS : Stroke alert-Left sided facial droop. RADIATION DOSE: 38.90 CTDIvol (mGy) IF STROKE ALERT - check box below This report was called by Dr Cage to Dr Calderon at 0922 MEDICAL HISTORY : Hypertension. SURGICAL HISTORY : Inguinal hernia repair. Carotid endarterectomy. ENCOUNTER: Initial ACUITY: 1 day PAIN SCALE: 0/10 LOCATION: Left cranial TECHNIQUE: Multiple contiguous axial images were obtained of the head. Using automated exposure control and adj ustment of the mA and/or kV according to patient size, radiation dose was kept as low as reasonably a chievable to obtain optimal diagnostic quality images. DICOM format image data is available electro nically for review and comparison. FINDINGS: CEREBRUM: Small chronic lacunar infarction involving right thalamus is stable. The ventricles are normal for ag e. No evidence of midline shift, mass lesion, hemorrhage or acute infarction. No extra-axial fluid collections are seen. POSTERIOR FOSSA: The cerebellum and brainstem are intact. The 4th ventricle is midline. The cerebellopontine angle i s unremarkable. EXTRACRANIAL: The visualized portion of the orbits is intact. SKULL: The calvaria is intact. No evidence of skull fracture. CONCLUSION: No acute disease. Easton Cage Jr., MD on May 08, 2017 at 9:17 Board Certified Radiologist. This report was verified electronically.
[2017-05-08 09:33] LABS: PROTHROMBIN TIME - PATIENT 10.6 SEC (9.8-11.6)
[2017-05-08 09:43] LABS: CREATINE KINASE 97 U/L (39-308)
--- NOTE | 2017-05-08 10:09 | RADRPT ---
EXAM DATE/TIME: 05/08/2017 09:24 [facility] COMPARISON: MRI BRAIN W/O CONTRAST, May 05, 2017, 12:29. CTA BRAIN W 3D RECON, May 05, 2017, 18:56. INDICATIONS : Stroke alert, left sided facial droop. Post right endarterectomy. IV CONTRAST: 48 cc Visipaque (iodixanol) IV ; Cumulative dose for multiple exams. RADIATION DOSE: 28.61 CTDIvol (mGy) ; Combined studies MEDICAL HISTORY : Hypertension. Hernia, inguinal. SURGICAL HISTORY : Carotid endarterectomy. ENCOUNTER: Initial ACUITY: 1 day PAIN SCALE: 0/10 LOCATION: cranial TECHNIQUE: Volumetric scanning was performed using a multi-row detector CT scanner. The data was post processed with a variety of visualization algorithms including full volume maximum intensity projection, multi -planar sliding thin slab reformation, curved planar reformation, and surface rendering techniques. Using automated exposure control and adjustment of the mA and/or kV according to patient size, radiat ion dose was kept as low as reasonably achievable to obtain optimal diagnostic quality images. DICO M format image data is available electronically for review and comparison. FINDINGS: There is excellent visualization of the major intracranial arteries out to the second-order branch ve ssels. There is no evidence for aneurysm, vessel truncation or stenosis, and no evidence for vascula r malformation. There has been no interval change in the CT of the brain. Major branch vessels remain patent without focal occlusion. Incomplete [place] with nonvisualization of the right P-comm remains. The venous sinuses are patent. CONCLUSION: No interval change, no major branch vessel occlusion. J Luis Peace MD FACR on May 08, 2017 at 10:06 Board Certified Radiologist. This report was verified electronically.
--- NOTE | 2017-05-08 10:17 | RADRPT ---
EXAM DATE/TIME: 05/08/2017 09:24 [facility] COMPARISON: CTA CAROTID ARTERIES W 3D RECON, May 05, 2017, 18:56. INDICATIONS : Stroke alert, left sided facial droop. Post right endarterectomy IV CONTRAST: 48 cc Visipaque (iodixanol) IV ; Cumulative dose for multiple exams. RADIATION DOSE: 28.61 CTDIvol (mGy) ; Combined studies MEDICAL HISTORY : Hypertension. Hernia, inguinal. SURGICAL HISTORY : Carotid endarterectomy. ENCOUNTER: Initial ACUITY: 1 day PAIN SCALE: 0/10 LOCATION: neck Elevated flow velocities and ICA/CCA ratios have been found to correlate with increased degrees of vessel stenosis, calculated as percentage of diameter relative to a normal segment of distal ICA/CCA. TECHNIQUE: Volumetric scanning was performed using a multirow detector CT scanner. The data was post processed with a variety of visualization algorithms including full-volume maximum intensity projection, multip lanar sliding thin-slab reformation, curved-planar reformation, and surface-rendering techniques. Us ing automated exposure control and adjustment of the mA and/or kV according to patient size, radiatio n dose was kept as low as reasonably achievable to obtain optimal diagnostic quality images. DICOM f ormat image data is available electronically for review and comparison. The bolus is suboptimal in t he neck. FINDINGS: AORTIC ARCH: There is a three-vessel origin of the great vessels from the aorta. No evidence of ostial narrowing. RIGHT CAROTID: The common carotid is poorly seen. LEFT CAROTID: Common carotid is poorly seen. VERTEBRALS: Both patent. CONCLUSION: Suboptimal bolus. Either repeat CTA or MRA would be of benefit to evaluate the right internal carotid. J Luis Peace MD FACR on May 08, 2017 at 10:11 Board Certified Radiologist. This report was verified electronically.
--- NOTE | 2017-05-08 10:25 | HHI.PR ---
Subjective Remarks f/u; s/p right CEA in no acute distress. d/w the RN; patient reportedly had worsening weakness of the left upper extremity along with facial droop. stroke alert was called at the time. patient still with left upper extremity weakness and some facial droop. Objective Vitals Vital Signs Date Time Temp Pulse Resp B/P Pulse Ox O2 Delivery O2 Flow Rate FiO2 05/08/17 08:46 18 05/08/17 07:00 93 05/08/17 04:00 98.6 74 18 161/82 95 165/60 05/08/17 03:50 76 05/08/17 00:00 77 05/08/17 00:00 99.0 76 18 151/73 94 174/54 05/07/17 21:45 95 21 05/07/17 20:00 97.5 65 18 172/94 94 172/66 05/07/17 19:30 64 05/07/17 15:00 98.0 79 18 166/91 96 165/69 05/07/17 15:00 96 05/07/17 12:00 96 05/07/17 12:00 97.5 74 16 159/88 97 151/66 I/O 05/07/17 05/07/17 05/07/17 05/08/17 05/08/17 05/08/17 07:00 15:00 23:00 07:00 15:00 23:00 Intake Total 1586 ml 939 ml Output Total 750 ml 855 ml Balance 836 ml 84 ml Intake Oral 100 ml 480 ml IV Total 1486 ml 459 ml Output Urine Total 750 ml 855 ml # Voids 4 # Bowel Movements 0 0 0 Result Diagram: 05/08/17 0900 05/08/17 0415 Imaging Last Impressions Head CTA 05/08/17 0000 Signed Impressions: Service Date/Time: Monday, May 08, 2017 09:24 - CONCLUSION: No interval change, no major branch vessel occlusion. J Luis Peace MD FACR Head CT 05/08/17 0000 Signed Impressions: Service Date/Time: Monday, May 08, 2017 09:12 - CONCLUSION: No acute disease. Easton Cage Jr., MD Neck CTA 05/05/17 0000 Signed Impressions: Service Date/Time: Friday, May 05, 2017 18:56 - CONCLUSION: Severe right internal carotid stenosis with a segment segment measuring 1.5 cm length with greater than 85%% stenosis. Milder (50%%) stenosis is also present at the origin of the right internal carotid artery. Easton Rainey MD Brain MRI 05/05/17 0000 Signed Impressions: Service Date/Time: Friday, May 05, 2017 12:29 - CONCLUSION: 1. Multiple small infarcts in the right MCA distribution. No mass effect or shift. José Miguel Valentin MD Carotid Artery Ultrasound 05/04/17 0000 Signed Impressions: Service Date/Time: Thursday, May 04, 2017 22:37 - CONCLUSION: 1. Abnormal right carotid with significantly elevated peak systolic velocity and velocity ratio, characteristic of 70-90%% stenosis. 2. Mild plaque formation in the left carotid with hemodynamic profile characteristic of less than 50%% stenosis. Easton Rainey MD Objective Remarks GENERAL: This is a well-nourished, well-developed patient, in no apparent distress. CARDIOVASCULAR: Regular rate and regular rhythm without murmurs, gallops, or rubs. RESPIRATORY: Clear to auscultation. Breath sounds equal bilaterally. No wheezes , rales, or rhonchi. GASTROINTESTINAL: Abdomen soft, non-tender, nondistended. Normal, active bowel sounds MUSCULOSKELETAL: Extremities without clubbing, cyanosis, or edema. NEURO: Alert & Oriented x4 to person, place, time, situation. Moves all ext x4 Procedures right carotid endarterectomy. Medications and IVs Current Medications Sodium Chloride (NS 1000 ml Inj) 1,000 ml @ 70 mls/hr [id number] IV Last administered on 05/07/17 05:43; Start 05/04/17 at 21:30 IV Flush (NS Flush) 2 ml BID IV FLUSH Last administered on 05/08/17 08:46; Start 05/05/17 at 09:00 IV Flush (NS Flush) 2 ml UNSCH PRN IV FLUSH FLUSH AFTER USING IV ACCESS; Start 05/04/17 at 22:45 Dipyridamole/ Aspirin (Aggrenox 200-25 Mg) 1 cap ONCE ONCE PO Last administered on 05/05/17 01:42; Start 05/05/17 at 00:00; Stop 05/05/17 at 00:01; Status DC Dipyridamole/ Aspirin (Aggrenox 200-25 Mg) 1 cap Q12HR PO Last administered on 05/05/17 07:44; Start 05/05/17 at 09:00; Stop 05/05/17 at 15:57; Status DC Enoxaparin Sodium (Lovenox Inj) 40 mg Q24H SQ Last administered on 05/05/17 07: 44; Start 05/05/17 at 09:00; Stop 05/05/17 at 15:57; Status DC Acetaminophen (Tylenol) 650 mg Q4H PRN PO HEADACHE/ FEVER/PAIN 1-10 Last administered on 05/08/17 06:07; Start 05/05/17 at 11:30 Atorvastatin Calcium (Lipitor) 10 mg HS PO ; Start 05/05/17 at 21:00; Stop at 21:00; Status DC Amlodipine Besylate (Norvasc) 10 mg DAILY PO Last administered on 05/08/17 06: 47; Start 05/06/17 at 09:00 Atorvastatin Calcium (Lipitor) 40 mg HS PO Last administered on 05/07/17 20:58 ; Start 05/05/17 at 21:00 Heparin Sodium (Porcine) (Heparin Inj) 5,000 units Q8HR SQ Last administered on 05/07/17 05:44; Start 05/05/17 at 22:00; Stop 05/07/17 at 12:28; Status DC Aspirin (Aspirin) 325 mg DAILY PO Last administered on 05/08/17 08:46; Start at 16:15 Iohexol (Omnipaque 350 Inj) 70 ml STK-MED ONCE IV Last administered on 19:38; Start 05/05/17 at 19:38; Stop 05/05/17 at 19:39; Status DC Midazolam HCl (Versed Inj) 2 mg STK-MED ONCE .ROUTE ; Start 05/07/17 at 07:02; Stop 05/07/17 at 07:03; Status DC Dexamethasone Sodium Phosphate (Decadron Inj) 4 mg STK-MED ONCE .ROUTE ; Start 05/07/17 at 07:02; Stop 05/07/17 at 07:03; Status DC Famotidine (Pepcid Inj) 20 mg STK-MED ONCE .ROUTE ; Start 05/07/17 at 07:04; Stop 05/07/17 at 07:05; Status DC Heparin Sodium (Porcine) (Heparin Inj) 20,000 units STK-MED ONCE .ROUTE Last administered on 05/07/17 08:50; Start 05/07/17 at 07:11; Stop 05/07/17 at 07:12; Status DC Vancomycin HCl 2000 mg 2,000 mg STK-MED ONCE .ROUTE ; Start 05/07/17 at 07:11; Stop 05/07/17 at 07:12; Status DC Cefazolin Sodium/ Dextrose (Ancef 2 Gm Premix) 50 ml @ As Directed STK-MED ONCE .ROUTE Last administered on 05/07/17 08:22; Start 05/07/17 at 07:12; Stop at 07:13; Status DC Protamine Sulfate (Protamine Sulfate Inj) 50 mg STK-MED ONCE .ROUTE ; Start 05/07 at 07:12; Stop 05/07/17 at 07:13; Status DC Lidocaine HCl (Xylocaine 1% Inj) 20 ml STK-MED ONCE .ROUTE Last administered on 05/07/17 09:48; Start 05/07/17 at 07:12; Stop 05/07/17 at 07:13; Status DC Thrombin (Thrombin [place]) 20,000 units STK-MED ONCE .ROUTE Last administered on 05/07/17 10:02; Start 05/07/17 at 07:23; Stop 05/07/17 at 07:24; Status DC Dexmedetomidine HCl (Precedex Inj) 200 mcg STK-MED ONCE .ROUTE ; Start 05/07/17 at 07:40; Stop 05/07/17 at 07:41; Status DC Acetaminophen (Ofirmev Inj) 1,000 mg STK-MED ONCE IV ; Start 05/07/17 at 07:40; Stop 05/07/17 at 07:41; Status DC Bupivacaine HCl/ Epinephrine Bitart (Sensorcaine-Epinephrine Pf 0.5% Inj) 30 ml STK-MED ONCE .ROUTE ; Start 05/07/17 at 09:31; Stop 05/07/17 at 09:32; Status DC Bupivacaine HCl 30 ml 30 ml STK-MED ONCE .ROUTE Last administered on 05/07/17 09:48; Start 05/07/17 at 09:32; Stop 05/07/17 at 09:33; Status DC Potassium Chloride/Dextrose/ Sod Cl (D5-1/2 NS + KCl 20 Meq Inj) 1,000 ml @ 42 mls/hr [id number] IV Last administered on 05/07/17 11:56; Start 05/07/17 at 11:17 Heparin Sodium (Porcine) (Heparin Inj) 5,000 units Q8H SQ Last administered on 05/08/17 08:46; Start 05/08/17 at 10:00 Fentanyl Citrate (fentaNYL INJ) 250 mcg STK-MED ONCE .ROUTE ; Start 05/07/17 at 11:35; Stop 05/07/17 at 11:36; Status DC Fentanyl Citrate (fentaNYL INJ) 250 mcg STK-MED ONCE .ROUTE ; Start 05/07/17 at 11:35; Stop 05/07/17 at 11:36; Status DC Metoprolol Tartrate (Lopressor Inj) 5 mg STK-MED ONCE .ROUTE ; Start 05/07/17 at 15:16; Stop 05/07/17 at 15:17; Status DC Metoprolol Tartrate (Lopressor Inj) 5 mg Q2HR PRN IV PUSH SBP GREATER THAN 160 Last administered on 05/08/17 00:35; Start 05/07/17 at 15:45 Hydralazine HCl (Apresoline Inj) 10 mg Q2H PRN IV PUSH SYS BP GREATER THAN 160 MMHG Last administered on 05/08/17 04:08; Start 05/07/17 at 21:45 A/P Assessment and Plan A/P CVA with carotid artery disease- s/p right CEA on 05/07/17- patient had worsening left sided weakness and facial droop earlier today. repeated head CT and CTA with no acute abnormality. continue aspirin and statin. line cleaner was consulted. neurology and vascular surgery following. History of hypertension- resumed amlodipine continue to monitor and adjust the regimen as needed. leukocytosis- possible reactive- afebrile- will monitor. History of hyperlipidemia- on statin DVT prophylaxis with subq Heparin. Discharge Planning not ready for discharge today. Charla Washington MD May 08, 2017 10:25
--- NOTE | 2017-05-08 10:51 | MB ---
cc: MATHEW NI M.D. DATE OF CONSULTATION 05/08/2017 REASON FOR CONSULTATION Stroke alert HISTORY OF PRESENT ILLNESS Mr. Redding is a 71-year-old man who developed an acute onset of left-sided weakness on Thursday presented to the hospital, was found to have on MRI scan multiple small strokes in the right MCA territory. He had some residual left-sided numbness and clumsiness. He was found to have significant carotid artery stenosis on CT angiogram on the right internal carotid artery with greater than 85% stenosis. The left carotid was normal. The patient underwent right carotid endarterectomy yesterday. Was doing well postoperatively. This morning while sitting up in a chair became hypotensive with a systolic pressure in the 50s. At that time, he developed head and eye deviation to the right side, leaning to the right side and increasing left-sided weakness. A stroke alert was therefore called. Since then, he has been supine. His blood pressure has normalized with systolic in the 151 range. His symptoms have significantly improved back to his baseline with still some residual clumsiness in the left hand. As part of the stroke alert protocol, we did obtain a CT scan of the brain which revealed no acute change. CT angiogram of the brain revealed no evidence of any large vessel occlusion. I had spoken to Dr. Peace who performed the CTA of the neck which we ordered, however technically it was not adequate to fully evaluate the right carotid. Nonetheless, the patient has improved back to his baseline state. His initial NIH stroke scale was three. CURRENT MEDICATIONS 1. He is on aspirin 325 mg daily. 2. He is on Lipitor 40 mg daily. 3. Norvasc 10 mg daily. 4. Lopressor p.r.n. 5. Apresoline p.r.n. 6. Heparin 5000 units subcu q.8 h. NEUROLOGIC EXAMINATION His blood pressure is 151/73, pulse 77, respirations are 16, temperature 99 degrees. His telemetry is showing normal sinus rhythm. Higher cortical functions are normal. Cranial nerves: He has a mild left facial droop. Other cranial nerves intact. On motor exam, he has got some mild weakness. His left correction officer reformatory is 4/5 proximally, he has 5/5 strength. He has diminished fine motor skills in his left hand. Left leg is normal in strength 5/5. LABORATORY DATA The white count is 22,700, hemoglobin 15, hematocrit 44.5%, platelet count is 249,000. Sodium is 141, potassium 3.8, chloride 105, CO2 24, BUN is 13, creatinine 0.95, LDL 102, HDL 35.5, cholesterol 166, triglycerides 142. IMPRESSION I suspect that this may have been a recurrent TIA probably related to hypotension which now has resolved. At the present time, I would recommend maintaining the patient's head of bed flat status to maintain blood pressure and also continue IV fluids. Continue aspirin for now. He was not a candidate for IV TPA given the recent surgery and also because of the resolution of his deficit back to baseline. Furthermore, there is no evidence of any large vessel occlusion amendable to an endovascular therapy in the brain on CTA. The patient has resolved her symptoms at the present time and I feel this probably was due to hypotension. Although the CTA of the neck was nondiagnostic, would not recommend a carotid ultrasound or further evaluation as this time as the patient has significantly improved since his blood pressure has normalized. MD POLY Anand/RODGER /10:20 AM /10:34 AM
[2017-05-08] MEDS: D5-1/2 NS + KCL 20 MEQ INJ 1,000 ML IV SCH (11:06)
[2017-05-08] MEDS: SODIUM CHLOR 0.9% 1000 ML INJ 1,000 ML IV SCH ×2 (11:18→12:00)
--- NOTE | 2017-05-08 11:47 | PD.CONS ---
[facility] Service Critical Care Medicine Consult Requested By Daecon COLVIN Reason for Consult Stroke Alert Primary Care Physician Ángel Paiz History of Present Illness This is a 71-year-old male that initially presented with a history of left- sided weakness on Thursday. Imaging studies performed revealed right internal carotid artery stenosis 85%, and multiple small strokes in MCA distribution, left carotid artery no stenosis noted. The patient subsequently underwent a right carotid endarterectomy yesterday. His initial postoperative course, was benign. His normal systolic blood pressure in the 150s, with postoperative note of minimal left-sided weakness as he presented preoperatively. Today while sitting up, the patient was noted to precipitously drop his blood pressure systolic in the 50s/20s with right sided eye deviation, and significantly increased left-sided weakness. A stroke alert was performed, neurology immediately consulted and imaging studies were performed. CTA of brain revealed no acute disease, CTA was noted to have no interval change. The patient subsequently placed supine with resolving symptomatology and improving strength and mentation. Currently the patient is back to baseline, with noted left-sided mild weakness in upper extremity and normal strength bilateral lower extremities. Review of Systems Neurologic: COMPLAINS OF: Localized weakness (left upper extremity ,, left facial droop) Past Family Social History Allergies: Coded Allergies: No Known Allergies (Unverified , 05/04/17) Physical Exam Vital Signs Vital Signs Date Time Temp Pulse Resp B/P Pulse Ox O2 Delivery O2 Flow Rate FiO2 05/08/17 08:46 18 05/08/17 07:00 93 05/08/17 04:00 98.6 74 18 161/82 95 165/60 05/08/17 03:50 76 05/08/17 00:00 77 05/08/17 00:00 99.0 76 18 151/73 94 174/54 05/07/17 21:45 95 21 05/07/17 20:00 97.5 65 18 172/94 94 172/66 05/07/17 19:30 64 05/07/17 15:00 98.0 79 18 166/91 96 165/69 05/07/17 15:00 96 05/07/17 12:00 96 05/07/17 12:00 97.5 74 16 159/88 97 151/66 Physical Exam GENERAL: Well-developed well-nourished appropriately stated age male, was only conversant SKIN: Warm and dry. HEAD: Atraumatic. Normocephalic. EYES: Pupils equal and round, 3mm and brisk. No scleral icterus. No injection or drainage. ENT: No nasal bleeding or discharge. Mucous membranes pink and moist. Left tongue deviation, left facial droop NECK: Trachea midline. No JVD. CARDIOVASCULAR: Normal rate, regular rhythm. RESPIRATORY: No accessory muscle use. Clear to auscultation. Breath sounds equal bilaterally. Nasal cannula GASTROINTESTINAL: Abdomen soft, non-tender, nondistended. No guarding. MUSCULOSKELETAL: Extremities without clubbing, cyanosis, or edema. No obvious deformities. NEUROLOGICAL: Awake and alert. RASS 0. No gross focal/sensory deficits. Follows commands in all 4 extremities. Noted motor strength left upper extremity 4/5 Laboratory Laboratory Tests Test 05/08/17 05/08/17 04:15 09:00 White Blood Count 19.2 22.7 Red Blood Count 4.86 4.99 Hemoglobin 14.5 15.0 Hematocrit 43.1 44.5 Mean Corpuscular Volume 88.6 89.1 Mean Corpuscular Hemoglobin 29.8 30.0 Mean Corpuscular Hemoglobin 33.6 33.6 Concent Red Cell Distribution Width 13.0 13.1 Platelet Count 237 249 Mean Platelet Volume 8.2 7.7 Sodium Level 140 Potassium Level 3.7 Chloride Level 107 Carbon Dioxide Level 24.0 Anion Gap 9 Blood Urea Nitrogen 13 Creatinine 0.95 Estimat Glomerular Filtration 78 Rate Random Glucose 124 Calcium Level 8.1 Bedside Hemoglobin 14.6 Bedside Hematocrit 43.0 Neutrophils (%) (Auto) 79.7 Lymphocytes (%) (Auto) 11.9 Monocytes (%) (Auto) 7.1 Eosinophils (%) (Auto) 0.4 Basophils (%) (Auto) 0.9 Neutrophils # (Auto) 18.1 Lymphocytes # (Auto) 2.7 Monocytes # (Auto) 1.6 Eosinophils # (Auto) 0.1 Basophils # (Auto) 0.2 CBC Comment DIFF FINAL Differential Comment Prothrombin Time 10.6 Prothromb Time International 1.0 Ratio Activated Partial 24.0 Thromboplast Time Fibrinogen 402 Bedside Sodium 141 Bedside Potassium 3.8 Bedside Chloride 105 Bedside Blood Urea Nitrogen 14 Bedside Creatinine 1.1 Bedside Glucose 160 Total Creatine Kinase 97 Troponin I LESS THAN 0.02 Result Diagram: 05/08/17 0900 05/08/17 0415 Imaging Last Impressions Neck CTA 05/08/17 0000 Signed Impressions: Service Date/Time: Monday, May 08, 2017 09:24 - CONCLUSION: Suboptimal bolus. Either repeat CTA or MRA would be of benefit to evaluate the right internal carotid. J Luis Peace MD FACR Head CTA 05/08/17 0000 Signed Impressions: Service Date/Time: Monday, May 08, 2017 09:24 - CONCLUSION: No interval change, no major branch vessel occlusion. J Luis Peace MD FACR Head CT 05/08/17 Signed Impressions: Service Date/Time: Monday, May 08, 2017 09:12 - CONCLUSION: No acute disease. Easton Cage Jr., MD Brain MRI 05/05/17 0000 Signed Impressions: Service Date/Time: Friday, May 05, 2017 12:29 - CONCLUSION: 1. Multiple small infarcts in the right MCA distribution. No mass effect or shift. José Miguel Valentin MD Carotid Artery Ultrasound 05/04/17 0000 Signed Impressions: Service Date/Time: Thursday, May 04, 2017 22:37 - CONCLUSION: 1. Abnormal right carotid with significantly elevated peak systolic velocity and velocity ratio, characteristic of 70-90%% stenosis. 2. Mild plaque formation in the left carotid with hemodynamic profile characteristic of less than 50%% stenosis. Easton Rainey MD Assessment and Plan Assessment and Plan Assessment S/P right carotid endarterectomy POD #1 H/O TIA Recent TIA Hyperglycemia Plan Neurologic: -Continue neurochecks every hour -Neurology consulted-Dr. Calderon -Patient to be maintained supine, or neurology recommendations Respiratory: -Maintain O2 sat greater than 92%, supplement with O2 via nasal cannula if required Cardiovascular: -Maintain MAP greater than 65mmhg. patient's normal systolic blood pressure 150s , with noted resolution of symptomatology -Consider hold on antihypertensive medications, for systolic pressure < 140's Renal: -- Strict I/Os FEN/GI: -Monitor BMP -Maintain NPO status for now, -Formal swallow evaluation by speech therapy when clinically indicated Heme/ID: No acute issues Monitor CBC Endocrine: Glucose monitoring per ICU protocol, low dose regimen -- SSI Prophylaxis: GI Prophylaxis Protonix DVT Prophylaxis -- SCDs Lines: Peripheral IVs 2 Central line if indicated Dispo: Per neuro evaluation, probable recurrent TIA per Neurology, with continued noted neurological improvement with normalization of blood pressure. Level 3 Code Status Full Discussed Condition With Patient, patient's and [employer] at bedside Duyen Sotomayor MD May 08, 2017 11:47
[2017-05-08] MEDS ORDERED: DEXTROSE 50% IN WATER 50 ML VIAL(D50) IV PRN (12:00)
[2017-05-08] MEDS ORDERED: GLUCAGON 1 MG/ML VIAL OTHER PRN (12:00)
[2017-05-08] MEDS: PANTOPRAZOLE SODIUM 40 MG VIAL IV PUSH SCH (13:56)
--- NOTE | 2017-05-08 14:30 | EKG ---
Date Performed: 05/08/2017 Time Performed: 09:47:14 PTAGE: 71 years EKG: Sinus rhythm Left anterior fascicular block rSr'(V1) - probable normal variant Anterolateral T wave changes may b e due to myocardial ischemia Abnormal ECG Since PREVIOUS TRACING , no significant change noted PREVIOUS TRACIN05/04/2017 20.58 DOCTOR: Jesse Koroma Interpretating Date/Time 05/08/2017 14:28:50
[2017-05-08] MEDS ORDERED: ACETAMINOPHEN 1000 MG/100 ML VIAL IV ONE (16:00)
[2017-05-08] MEDS: INSULIN ASPART SUPPLEMENTAL SCALE SQ SCH ×2 (16:00→21:00)
[2017-05-08] MEDS: ATORVASTATIN 40 MG TAB PO SCH (21:23)
[2017-05-09] VITALS (9 sets, daily range): BP systolic 141–167; BP diastolic 73–89; PULSE 71–118; RESP 18–20; TEMP 97.6–99.1; O2SAT 92–97
[2017-05-09] MEDS: HEPARIN SODIUM - SQ 10,000 UNITS/ML VIAL SQ SCH ×3 (02:16→18:37)
[2017-05-09] MEDS: SODIUM CHLOR 0.9% 1000 ML INJ 1,000 ML IV SCH (02:17)
[2017-05-09] MEDS: INSULIN ASPART SUPPLEMENTAL SCALE SQ SCH ×4 (06:31→21:00)
[2017-05-09 06:53] LABS: AUTOMATED NEUTROPHIL # 13.9 TH/MM3 (1.8-7.7); BASOPHIL # 0.1 TH/MM3 (0-0.2); BASOPHIL % 0.5 % (0.0-2.0); HEMATOCRIT 43.2 % (39.0-51.0); HEMO FLAGS DIFF FINAL; LYMPHOCYTE # 2.3 TH/MM3 (1.0-4.8); MEAN CELL VOLUME 88.7 FL (80.0-100.0); MEAN CORPUSCULAR HGB CONC 33.8 % (32.0-36.0); MONO % 6.8 % (0.0-8.0); NEUT % 79.7 % (16.0-70.0); PLATELET COUNT 222 TH/MM3 (150-450); RED BLOOD COUNT 4.87 MIL/MM3 (4.50-5.90); RED CELL DISTRIBUTION WIDTH 13.6 % (11.6-17.2); WHITE BLOOD COUNT 17.5 TH/MM3 (4.0-11.0)
[2017-05-09] MEDS: SODIUM CHLORIDE 0.9% FLUSH 5 ML FLUSH IV FLUSH SCH ×2 (09:00→21:00)
[2017-05-09] MEDS: ASPIRIN 325 MG TAB PO SCH (09:01)
--- NOTE | 2017-05-09 10:32 | HHI.CCPN ---
Subjective Remarks/Hospital Course This is a 71-year-old male that initially presented with a history of left- sided weakness on Thursday. Imaging studies performed revealed right internal carotid artery stenosis 85%, and multiple small strokes in MCA distribution, left carotid artery no stenosis noted. The patient subsequently underwent a right carotid endarterectomy yesterday. His initial postoperative course, was benign. His normal systolic blood pressure in the 150s, with postoperative note of minimal left-sided weakness as he presented preoperatively. Today while sitting up, the patient was noted to precipitously drop his blood pressure systolic in the 50s/20s with right sided eye deviation, and significantly increased left-sided weakness. A stroke alert was performed, neurology immediately consulted and imaging studies were performed. CTA of brain revealed no acute disease, CTA was noted to have no interval change. The patient subsequently placed supine with resolving symptomatology and improving strength and mentation. Currently the patient is back to baseline, with noted left-sided mild weakness in upper extremity and normal strength bilateral lower extremities. Subjective: 05/09: No acute issues during the night. The patient was placed in a semi- recombinant position yesterday afternoon, subsequently throughout the night the patient was up out of bed to bedside commode and chair without any acute neurological events. The patient's blood pressure has been maintained within a systolic reading of [id number]. The patient remains alert and oriented, diet advanced to heart healthy. IV fluids to be discontinued upon consumption of heart healthy diet. Objective Vital Signs Date Time Temp Pulse Resp B/P Pulse Ox O2 Delivery O2 Flow Rate FiO2 05/09/17 03:00 98.2 93 20 165/85 94 05/08/17 21:15 Nasal Cannula 2.00 05/07/17 21:45 21 Intake and Output 05/08/17 05/08/17 05/09/17 08:00 16:00 00:00 Intake Total 939 ml 2022 ml Output Total 855 ml 1950 ml Balance 84 ml 72 ml Result Diagram: 05/09/17 0601 05/08/17 0415 Imaging Last Impressions Neck CTA 05/08/17 0000 Signed Impressions: Service Date/Time: Monday, May 08, 2017 09:24 - CONCLUSION: Suboptimal bolus. Either repeat CTA or MRA would be of benefit to evaluate the right internal carotid. J Luis Peace MD FACR Head CTA 05/08/17 0000 Signed Impressions: Service Date/Time: Monday, May 08, 2017 09:24 - CONCLUSION: No interval change, no major branch vessel occlusion. J Luis Peace MD FACR Head CT 05/08/17 0000 Signed Impressions: Service Date/Time: Monday, May 08, 2017 09:12 - CONCLUSION: No acute disease. Easton Cage Jr., MD Brain MRI 05/05/17 0000 Signed Impressions: Service Date/Time: Friday, May 05, 2017 12:29 - CONCLUSION: 1. Multiple small infarcts in the right MCA distribution. No mass effect or shift. José Miguel Valentin MD Carotid Artery Ultrasound 05/04/17 0000 Signed Impressions: Service Date/Time: Thursday, May 04, 2017 22:37 - CONCLUSION: 1. Abnormal right carotid with significantly elevated peak systolic velocity and velocity ratio, characteristic of 70-90%% stenosis. 2. Mild plaque formation in the left carotid with hemodynamic profile characteristic of less than 50%% stenosis. Easton Rainey MD Objective Remarks GENERAL: Well-developed well-nourished appropriately stated age male, was only conversant SKIN: Warm and dry. HEAD: Atraumatic. Normocephalic. EYES: Pupils equal and round, 3mm and brisk. No scleral icterus. No injection or drainage. ENT: No nasal bleeding or discharge. Mucous membranes pink and moist. Left tongue deviation, left facial droop (unchanged) NECK: Trachea midline. No JVD. CARDIOVASCULAR: Normal rate, regular rhythm. RESPIRATORY: No accessory muscle use. Clear to auscultation. Breath sounds equal bilaterally. Nasal cannula GASTROINTESTINAL: Abdomen soft, non-tender, nondistended. No guarding. MUSCULOSKELETAL: Extremities without clubbing, cyanosis, or edema. No obvious deformities. NEUROLOGICAL: Awake and alert. RASS 0. No gross focal/sensory deficits. Follows commands in all 4 extremities. Noted motor strength left upper extremity 4/5. Slight left pronator drift A/P Assessment and Plan Assessment S/P right carotid endarterectomy POD #1 H/O TIA Recent TIA Hyperglycemia Plan Neurologic: -Neurochecks per ICU protocol -Neurology consulted-Dr. Calderon -Resume regular activities,OOB to chair -GCS 15 Respiratory: -Maintain O2 sat greater than 92%, supplement with O2 via nasal cannula if required -Wean O2 off Cardiovascular: -Maintain MAP greater than 65mmhg. patient's normal systolic blood pressure 150s , with noted resolution of symptomatology -Consider hold on antihypertensive medications, for systolic pressure < 140's - Hydralazine 10mg IVP q6 hr PRN for SBP > 180mmHg Renal: -- Strict I/Os FEN/GI: -Monitor BMP -Tolerating clear liquid diet, advance to heart healthy diet -05/08 Bedside swallow-adequate - D/C IVF NS @ 70cc/hr Heme/ID: No acute issues Monitor CBC Endocrine: Glucose monitoring per ICU protocol, low dose regimen -- SSI MSK: --PT evaluate and treat Prophylaxis: GI Prophylaxis Protonix DVT Prophylaxis -- SCDs Lines: Peripheral IVs 2 Central line if indicated Dispo: The patient has returned to baseline, neurologically. Alert and oriented and follows commands up out of bed ambulating tolerating a diet. Thank you for participation in the care of this patient. Critical care medicine will sign off. Level 2 Physician Duyen Leblanc MD May 09, 2017 10:32
--- NOTE | 2017-05-09 11:17 | PD.VS.PN ---
Subjective POD #: 2 Procedure(s): R CEA Subjective/Hospital Course Yesterday had neuro episode from which he completely recovered - imaging negative and back to baseline. Neuro event likely secondary to transient hypotension No FELIPE, difficulty swallowing or focal neuro deficits today sitting in chair Objective Vitals/I&O Date Time Temp Pulse Resp B/P Pulse Ox O2 Delivery O2 Flow Rate FiO2 05/09/17 03:00 98.2 93 20 165/85 94 05/09/17 03:00 93 05/08/17 23:00 104 05/08/17 23:00 98.5 104 22 144/82 94 05/08/17 22:30 20 05/08/17 21:15 97 Nasal Cannula 2.00 05/08/17 19:00 98.3 99 22 172/84 93 05/08/17 19:00 99 05/08/17 18:18 18 05/08/17 15:00 93 05/08/17 15:00 98.6 89 18 153/76 97 Exam: R neck incision ok; neuro intact facial droop persists R mandibular distribution Laboratory Laboratory Tests Test 05/09/17 06:01 White Blood Count 17.5 Red Blood Count 4.87 Hemoglobin 14.6 Hematocrit 43.2 Mean Corpuscular Volume 88.7 Mean Corpuscular Hemoglobin 30.0 Mean Corpuscular Hemoglobin 33.8 Concent Red Cell Distribution Width 13.6 Platelet Count 222 Mean Platelet Volume 8.6 Neutrophils (%) (Auto) 79.7 Lymphocytes (%) (Auto) 13.0 Monocytes (%) (Auto) 6.8 Eosinophils (%) (Auto) 0.0 Basophils (%) (Auto) 0.5 Neutrophils # (Auto) 13.9 Lymphocytes # (Auto) 2.3 Monocytes # (Auto) 1.2 Eosinophils # (Auto) 0.0 Basophils # (Auto) 0.1 CBC Comment DIFF FINAL Differential Comment Assessment and Plan Assessment: (1) Carotid arterial disease Status: Acute Plan Neuro intact after R CEA continue ASA (81) and ok to start plavix Goal SBP 140-160 PT/OOB and normalize d/c planning Rigoberto Worthy MD FACS RPVI cut out marker [facility] - Heart and Vascular Surgery at [facility] [phone] Problem Qualifiers (1) Carotid arterial disease: Qualified Code: I77.9 - Right-sided carotid artery disease Rigoberto Worthy MD May 09, 2017 11:17
[2017-05-09] MEDS: PANTOPRAZOLE SODIUM 40 MG VIAL IV PUSH SCH (11:55)
[2017-05-09] MEDS: TAMSULOSIN HCL 0.4 MG CAP PO SCH (18:38)
--- NOTE | 2017-05-09 19:14 | HHI.PR ---
Review/Management Diagnosis right MCA stroke significant right carotid stenosis--s/p right CEA Neuro is stable. Diagnosis/Plan: (1) Acute ischemic right MCA stroke Plan: stroke non-disabling at present mri+ rt mca embolic strokes likely 2/2 symptomatic rt carotid s/p rt cea recs neuro stable p.t. on aspirin/statin; was on aspirin before stroke. would change to plavix and d/ c aspirin when feasible with vascular surgery a d/c planning (2) Carotid arterial disease Plan: symptomatic rt carotid stenosis- s/p rt cea (3) HTN (hypertension) Subjective Subjective Comments No acute events reported left arm and hand srength improving Active Medications Current Medications Medications (Trade) Dose Ordered Sig/Ari Route Start Time Stop Time Status Last Admin (NS Flush) 2 ml BID IV FLUSH 05/05/17 09:00 05/09/17 09:00 (NS Flush) 2 ml UNSCH PRN IV FLUSH 05/04/17 22:45 (Tylenol) 650 mg Q4H PRN PO 05/05/17 11:30 05/08/17 21:23 (Norvasc) 10 mg DAILY PO 05/06/17 09:00 05/09/17 09:01 (Lipitor) 40 mg HS PO 05/05/17 21:00 05/08/17 21:23 (Aspirin) 325 mg DAILY PO 05/05/17 16:15 05/09/17 09:01 (Heparin Inj) 5,000 units Q8H SQ 05/08/17 10:00 05/09/17 18:37 (Lopressor Inj) 5 mg Q2HR PRN IV PUSH 05/07/17 15:45 05/08/17 00:35 (Apresoline Inj) 10 mg Q2H PRN IV PUSH 05/07/17 21:45 05/08/17 22:09 (Protonix Inj) 40 mg Q24H IV PUSH 05/08/17 12:00 05/09/17 11:55 (D50w (Vial) Inj) 50 ml UNSCH PRN IV 05/08/17 12:00 Glucagon 1 mg 1 mg UNSCH PRN OTHER 05/08/17 12:00 (NS 1000 ml Inj) 1,000 ml @ 70 mls/hr [id number] IV 05/08/17 12:00 05/09/17 02:17 (Flomax) 0.4 mg DAILY PO 05/09/17 16:30 05/09/17 18:38 Allergies Allergies Coded Allergies No Known Allergies (Unverified05/04/17) Review of Systems All other ROS: ROS reviewed as documented in chart Exam I&O / VS 05/08/17 05/08/17 05/09/17 15:00 23:00 07:00 Intake Total 2022 ml 1698 ml Output Total 1950 ml 725 ml Balance 72 ml 973 ml Intake Oral 480 ml 480 ml IV Total 1542 ml 1218 ml Output Urine Total 1950 ml 725 ml # Bowel Movements 0 0 Vital Signs Date Time Temp Pulse Resp B/P Pulse Ox O2 Delivery O2 Flow Rate FiO2 05/09/17 16:50 92 21 05/09/17 11:00 72 05/09/17 11:00 97.6 72 20 141/73 92 05/09/17 08:00 105 05/09/17 08:00 97.9 118 20 167/89 97 Arterial Line 05/09/17 03:00 98.2 93 20 165/85 94 05/09/17 03:00 93 05/08/17 23:00 104 05/08/17 23:00 98.5 104 22 144/82 94 05/08/17 22:30 20 05/08/17 21:15 97 Nasal Cannula 2.00 General: Alert and Oriented, No acute distress Eye: EOMI Respiratory: Non-labored respirations Neurologic: Alert, Oriented, Normal sensory, CN II-XII intact, Normal DTR's Psychiatric: Cooperative, Appropriate mood & affect, Normal judgement, Non- suicidal Exam Comments alert, speech normal CN intact MOTOR 5/5 proximal LUE 4/5 left locksmith 5/5 LLE Objective Micro and Labs Laboratory Tests Test 05/09/17 06:01 White Blood Count 17.5 Red Blood Count 4.87 Hemoglobin 14.6 Hematocrit 43.2 Mean Corpuscular Volume 88.7 Mean Corpuscular Hemoglobin 30.0 Mean Corpuscular Hemoglobin 33.8 Concent Red Cell Distribution Width 13.6 Platelet Count 222 Mean Platelet Volume 8.6 Neutrophils (%) (Auto) 79.7 Lymphocytes (%) (Auto) 13.0 Monocytes (%) (Auto) 6.8 Eosinophils (%) (Auto) 0.0 Basophils (%) (Auto) 0.5 Neutrophils # (Auto) 13.9 Lymphocytes # (Auto) 2.3 Monocytes # (Auto) 1.2 Eosinophils # (Auto) 0.0 Basophils # (Auto) 0.1 CBC Comment DIFF FINAL Differential Comment Problem Qualifiers (1) Carotid arterial disease: Qualified Code: I77.9 - Right-sided carotid artery disease (2) HTN (hypertension): Qualified Code: I10 - Essential hypertension Brian Calderon PhD May 09, 2017 19:14
[2017-05-09] MEDS: ATORVASTATIN 40 MG TAB PO SCH (21:31)
[2017-05-10] VITALS (11 sets, daily range): BP systolic 136–168; BP diastolic 67–88; PULSE 13–103; RESP 18–20; TEMP 97.9–98.2; O2SAT 94–97
[2017-05-10] MEDS: HEPARIN SODIUM - SQ 10,000 UNITS/ML VIAL SQ SCH ×3 (01:10→17:27)
[2017-05-10] MEDS: hydrALAZINE HCL 20 MG/ML VIAL IV PUSH PRN (01:16)
[2017-05-10] MEDS: ACETAMINOPHEN 325 MG TAB PO PRN ×2 (01:17→20:43)
[2017-05-10] MEDS: INSULIN ASPART SUPPLEMENTAL SCALE SQ SCH ×4 (06:30→20:46)
[2017-05-10] MEDS: SODIUM CHLORIDE 0.9% FLUSH 5 ML FLUSH IV FLUSH SCH ×2 (09:00→20:42)
[2017-05-10] MEDS: ASPIRIN 325 MG TAB PO SCH (09:08)
[2017-05-10] MEDS: TAMSULOSIN HCL 0.4 MG CAP PO SCH (09:08)
--- NOTE | 2017-05-10 11:38 | PD.VS.PN ---
Subjective POD #: 3 Procedure(s): R CEA Subjective/Hospital Course no neuro events; sitting in chair and feels well did have urinary retention yesterday req Fernandez reinsertion adalberto diet no FELIPE Objective Vitals/I&O Date Time Temp Pulse Resp B/P Pulse Ox O2 Delivery O2 Flow Rate FiO2 05/10/17 11:00 82 05/10/17 10:06 96 21 05/10/17 07:47 97.9 95 18 153/86 94 05/10/17 07:00 82 05/10/17 03:00 95 05/10/17 03:00 97.9 95 18 148/77 95 05/10/17 02:30 18 05/09/17 23:06 117 05/09/17 23:00 98.9 93 18 157/87 94 05/09/17 20:50 97 21 05/09/17 19:00 71 05/09/17 19:00 98.2 117 20 162/79 92 05/09/17 16:50 92 21 05/09/17 15:00 106 05/09/17 15:00 99.1 106 20 149/77 92 Exam: R neck incision ok R facial droop persists no tongue deviation no dysphagia Assessment and Plan Assessment: (1) Carotid arterial disease Status: Acute Plan Neuro intact after R CEA continue ASA (81) and ok to start plavix Goal SBP 140-160 PT/OOB and normalize Fernandez out tomorrow with voiding trial d/c planning Rigoberto Worthy MD FACS RPVI wire wrapper machine operator [facility] - Heart and Vascular Surgery at [facility] [phone] Problem Qualifiers (1) Carotid arterial disease: Qualified Code: I77.9 - Right-sided carotid artery disease Rigoberto Worthy MD May 10, 2017 11:38
[2017-05-10] MEDS: PANTOPRAZOLE SODIUM 40 MG VIAL IV PUSH SCH (13:30)
--- NOTE | 2017-05-10 13:53 | HHI.PR ---
Review/Management Diagnosis right MCA stroke significant right carotid stenosis--s/p right CEA Neuro is stable. Diagnosis/Plan: (1) Acute ischemic right MCA stroke Plan: stroke non-disabling at present mri+ rt mca embolic strokes likely 2/2 symptomatic rt carotid s/p rt cea recs neuro stable p.t. on aspirin/statin; was on aspirin before stroke. would change to plavix and d/ c aspirin when feasible with vascular surgery a d/c planning (2) Carotid arterial disease Plan: symptomatic rt carotid stenosis- s/p rt cea (3) HTN (hypertension) Subjective Subjective Comments No acute events reported No headache no further episodes of hypotension or increase in left side weakness Active Medications Current Medications Medications (Trade) Dose Ordered Sig/Rai Route Start Time Stop Time Status Last Admin (NS Flush) 2 ml BID IV FLUSH 05/05/17 09:00 05/10/17 09:00 (NS Flush) 2 ml UNSCH PRN IV FLUSH 05/04/17 22:45 (Tylenol) 650 mg Q4H PRN PO 05/05/17 11:30 05/10/17 01:17 (Norvasc) 10 mg DAILY PO 05/06/17 09:00 05/10/17 09:08 (Lipitor) 40 mg HS PO 05/05/17 21:00 05/09/17 21:31 (Aspirin) 325 mg DAILY PO 05/05/17 16:15 05/10/17 09:08 (Heparin Inj) 5,000 units Q8H SQ 05/08/17 10:00 05/10/17 09:09 (Lopressor Inj) 5 mg Q2HR PRN IV PUSH 05/07/17 15:45 05/08/17 00:35 (Apresoline Inj) 10 mg Q2H PRN IV PUSH 05/07/17 21:45 05/10/17 01:16 (Protonix Inj) 40 mg Q24H IV PUSH 05/08/17 12:00 05/10/17 13:30 (D50w (Vial) Inj) 50 ml UNSCH PRN IV 05/08/17 12:00 (Glucagon Inj) 1 mg UNSCH PRN OTHER 05/08/17 12:00 (Flomax) 0.4 mg DAILY PO 05/09/17 16:30 05/10/17 09:08 Allergies Allergies Coded Allergies No Known Allergies (Unverified05/04/17) Review of Systems All other ROS: ROS reviewed as documented in chart Exam I&O / VS 05/09/17 05/09/17 05/10/17 15:00 23:00 07:00 Intake Total 1270 ml 440 ml Output Total 1405 ml 405 ml Balance -135 ml 35 ml Intake Oral 900 ml 440 ml IV Total 370 ml 0 ml Output Urine Total 1400 ml 400 ml Drainage Total 5 ml 5 ml # Bowel Movements 0 0 Vital Signs Date Time Temp Pulse Resp B/P Pulse Ox O2 Delivery O2 Flow Rate FiO2 05/10/17 12:00 98.0 89 20 136/67 94 05/10/17 11:00 82 05/10/17 10:06 96 21 05/10/17 07:47 97.9 95 18 153/86 94 05/10/17 07:00 82 05/10/17 03:00 95 05/10/17 03:00 97.9 95 18 148/77 95 05/10/17 02:30 18 05/09/17 23:06 117 05/09/17 23:00 98.9 93 18 157/87 94 05/09/17 20:50 97 21 05/09/17 19:00 71 05/09/17 19:00 98.2 117 20 162/79 92 05/09/17 16:50 92 21 05/09/17 15:00 106 05/09/17 15:00 99.1 106 20 149/77 92 General: Alert and Oriented, No acute distress Eye: EOMI Respiratory: Non-labored respirations Neurologic: Alert, Oriented, Normal sensory, CN II-XII intact, Normal DTR's Psychiatric: Cooperative, Appropriate mood & affect, Normal judgement, Non- suicidal Exam Comments alert, speech normal CN intact MOTOR 5/5 proximal LUE 4/5 left aircraft air conditioning mechanic 5/5 LLE Problem Qualifiers (1) Carotid arterial disease: Qualified Code: I77.9 - Right-sided carotid artery disease (2) HTN (hypertension): Qualified Code: I10 - Essential hypertension Brian Calderon PhD May 10, 2017 13:53
[2017-05-10] MEDS: ATORVASTATIN 40 MG TAB PO SCH (20:42)
[2017-05-11] VITALS (21 sets, daily range): BP systolic 137–156; BP diastolic 56–94; PULSE 58–119; RESP 14–18; TEMP 97.5–98.9; O2SAT 94–99
[2017-05-11] MEDS: HEPARIN SODIUM - SQ 10,000 UNITS/ML VIAL SQ SCH ×3 (02:41→17:21)
[2017-05-11] MEDS: INSULIN ASPART SUPPLEMENTAL SCALE SQ SCH ×4 (06:17→21:00)
[2017-05-11] MEDS: ACETAMINOPHEN 325 MG TAB PO PRN ×2 (06:17→21:40)
--- NOTE | 2017-05-11 07:19 | PD.VS.PN ---
Subjective POD #: 4 Procedure(s): R CEA Subjective/Hospital Course no neuro events; sfeels well adalberto diet Objective Vitals/I&O Date Time Temp Pulse Resp B/P Pulse Ox O2 Delivery O2 Flow Rate FiO2 05/11/17 04:00 98.0 77 18 155/79 94 05/11/17 03:20 66 05/11/17 00:00 77 05/11/17 00:00 98.1 74 18 155/58 97 05/10/17 20:46 97 21 05/10/17 20:00 98.2 74 18 168/81 94 05/10/17 19:00 103 05/10/17 15:26 98.1 99 20 138/88 94 05/10/17 15:00 99 05/10/17 12:00 98.0 89 20 136/67 94 05/10/17 11:00 82 05/10/17 10:06 96 21 05/10/17 07:47 97.9 95 18 153/86 94 05/11/17 05/11/17 05/11/17 07:00 15:00 23:00 Intake Total 240 ml Output Total 750 ml Balance -510 ml Exam: R neck incision c/d/i 5/5 strength x 4 extr facial asymmetry persists but CN XII intact Assessment and Plan Assessment: (1) Carotid arterial disease Status: Acute Plan Neuro intact after R CEA continue ASA (81) and ok to start plavix Goal SBP 140-160 PT/OOB and normalize Fernandez out today ok to transfer from ICU d/c planning - ok to d/c if voiding from vasc surgery standpoint Rigoberto Worthy MD FACS RPVI industrial engineering [facility] - Heart and Vascular Surgery at [facility] [phone] Problem Qualifiers (1) Carotid arterial disease: Qualified Code: I77.9 - Right-sided carotid artery disease Rigoberto Worthy MD May 11, 2017 07:19
--- NOTE | 2017-05-11 08:52 | HHI.PR ---
Review/Management Diagnosis right MCA stroke significant right carotid stenosis--s/p right CEA Neuro is stable. Diagnosis/Plan: (1) Acute ischemic right MCA stroke Plan: stroke non-disabling at present mri+ rt mca embolic strokes likely 2/2 symptomatic rt carotid s/p rt cea recs doing very well; stable exam >24 hrs on aspirin/statin; was on aspirin before stroke. would change to plavix and d/ c aspirin when feasible with vascular surgery d/c planning today from neuro; can go home and f/u with us in 2-3 weeks (2) Carotid arterial disease Plan: symptomatic rt carotid stenosis- s/p rt cea (3) HTN (hypertension) Subjective Subjective Comments No acute events reported overnight had tia on thursday but was hypotensive sitting up eating breakfast No headache No chest pain No dyspnea Active Medications Current Medications Medications (Trade) Dose Ordered Sig/Rai Route Start Time Stop Time Status Last Admin (NS Flush) 2 ml BID IV FLUSH 05/05/17 09:00 05/10/17 20:42 (NS Flush) 2 ml UNSCH PRN IV FLUSH 05/04/17 22:45 (Tylenol) 650 mg Q4H PRN PO 05/05/17 11:30 05/11/17 06:17 (Norvasc) 10 mg DAILY PO 05/06/17 09:00 05/10/17 09:08 (Lipitor) 40 mg HS PO 05/05/17 21:00 05/10/17 20:42 (Aspirin) 325 mg DAILY PO 05/05/17 16:15 05/10/17 09:08 (Heparin Inj) 5,000 units Q8H SQ 05/08/17 10:00 05/11/17 02:41 (Lopressor Inj) 5 mg Q2HR PRN IV PUSH 05/07/17 15:45 05/08/17 00:35 (Apresoline Inj) 10 mg Q2H PRN IV PUSH 05/07/17 21:45 05/10/17 01:16 (Protonix Inj) 40 mg Q24H IV PUSH 05/08/17 12:00 05/10/17 13:30 (D50w (Vial) Inj) 50 ml UNSCH PRN IV 05/08/17 12:00 (Glucagon Inj) 1 mg UNSCH PRN OTHER 05/08/17 12:00 (Flomax) 0.4 mg DAILY PO 05/09/17 16:30 05/10/17 09:08 Allergies Allergies Coded Allergies No Known Allergies (Unverified05/04/17) Review of Systems All other ROS: ROS reviewed as documented in chart Exam I&O / VS 05/10/17 05/10/17 05/11/17 15:00 23:00 07:00 Intake Total 1670 ml 240 ml Output Total 900 ml 750 ml Balance 770 ml -510 ml Intake Oral 1320 ml 240 ml IV Total 350 ml 0 ml Output Urine Total 900 ml 750 ml # Bowel Movements 0 0 Vital Signs Date Time Temp Pulse Resp B/P Pulse Ox O2 Delivery O2 Flow Rate FiO2 05/11/17 08:07 69 05/11/17 07:40 96 21 05/11/17 07:15 98.4 69 14 156/87 96 05/11/17 07:15 14 05/11/17 04:00 98.0 77 18 155/79 94 05/11/17 03:20 66 05/11/17 00:00 77 05/11/17 00:00 98.1 74 18 155/58 97 05/10/17 20:46 97 21 05/10/17 20:00 98.2 74 18 168/81 94 05/10/17 19:00 103 05/10/17 15:26 98.1 99 20 138/88 94 05/10/17 15:00 99 05/10/17 12:00 98.0 89 20 136/67 94 05/10/17 11:00 82 05/10/17 10:06 96 21 General: Alert and Oriented, No acute distress Eye: EOMI Respiratory: Non-labored respirations Neurologic: Alert, Oriented, Normal sensory, CN II-XII intact, Normal DTR's Psychiatric: Cooperative, Appropriate mood & affect, Normal judgement, Non- suicidal Exam Comments ox 3 , sitting up eating breakfast, no aphasia, no neglect, eomi, vff, face sym , tongue midline, left ue minimal dystaxia, no drift, able to raise all 4 ext to gravity >10 secs, gait not assessed 2/2 fall risk Problem Qualifiers (1) Carotid arterial disease: Qualified Code: I77.9 - Right-sided carotid artery disease (2) HTN (hypertension): Qualified Code: I10 - Essential hypertension Rey Da Silva MD May 11, 2017 08:52
[2017-05-11] MEDS: SODIUM CHLORIDE 0.9% FLUSH 5 ML FLUSH IV FLUSH SCH ×2 (09:00→21:00)
[2017-05-11] MEDS: ASPIRIN 325 MG TAB PO SCH (09:09)
[2017-05-11] MEDS: TAMSULOSIN HCL 0.4 MG CAP PO SCH (09:09)
[2017-05-11] MEDS: PANTOPRAZOLE SODIUM 40 MG VIAL IV PUSH SCH (12:00)
[2017-05-11] MEDS: PANTOPRAZOLE SOD 40 MG DELAYED RELEASE TAB PO SCH (12:30)
[2017-05-11] MEDS: ATORVASTATIN 40 MG TAB PO SCH (21:39)
[2017-05-12] VITALS (11 sets, daily range): BP systolic 157–176; BP diastolic 89–90; PULSE 59–84; RESP 18; TEMP 97.6–98; O2SAT 96–97
[2017-05-12] MEDS: ACETAMINOPHEN 325 MG TAB PO PRN ×2 (02:20→09:35)
[2017-05-12] MEDS: HEPARIN SODIUM - SQ 10,000 UNITS/ML VIAL SQ SCH ×2 (02:21→09:29)
[2017-05-12] MEDS: INSULIN ASPART SUPPLEMENTAL SCALE SQ SCH (06:03)
--- NOTE | 2017-05-12 06:55 | PD.VS.PN ---
Subjective POD #: 5 Procedure(s): R CEA Subjective/Hospital Course no neuro events; feels well adalberto diet no FELIPE Objective Vitals/I&O Date Time Temp Pulse Resp B/P Pulse Ox O2 Delivery O2 Flow Rate FiO2 05/12/17 06:04 70 05/12/17 05:15 65 05/12/17 04:24 18 05/12/17 04:14 61 05/12/17 03:30 98.0 76 18 157/90 96 05/12/17 03:00 59 05/12/17 02:03 67 05/12/17 01:00 63 05/12/17 00:00 68 05/11/17 23:44 98.9 71 16 146/82 94 05/11/17 23:00 69 05/11/17 22:00 72 05/11/17 21:00 104 05/11/17 20:00 60 05/11/17 20:00 97.5 58 18 143/80 98 05/11/17 19:43 99 21 05/11/17 19:00 87 05/11/17 18:06 75 05/11/17 17:18 86 05/11/17 16:31 70 05/11/17 15:27 74 05/11/17 15:27 98.4 83 18 142/56 96 05/11/17 14:19 119 05/11/17 13:32 101 05/11/17 12:20 70 05/11/17 11:45 71 05/11/17 11:45 98.4 65 18 137/94 98 05/11/17 08:07 69 05/11/17 07:40 96 21 05/11/17 07:15 98.4 69 14 156/87 96 05/12/17 05/12/17 05/12/17 07:00 15:00 23:00 Intake Total 480 ml Output Total 1200 ml Balance -720 ml Exam: R neck incision c/d/i with minimal swelling mild R facial droop better than yesterday no other focal neuro deficits Assessment and Plan Assessment: (1) Carotid arterial disease Status: Acute Plan Looks great likely retraction CN deficit, which is self-limited usually no swallowing difficulties d/c today Discharge Planning today; RTC 3-4 weeks with carotid duplex - will schedule Problem Qualifiers (1) Carotid arterial disease: Qualified Code: I77.9 - Right-sided carotid artery disease Rigoberto Worthy MD May 12, 2017 06:55
[2017-05-12] MEDS ORDERED: PERC5TAB12 PO (08:32)
--- NOTE | 2017-05-12 08:43 | PD.VS.DC ---
Discharge Summary Admission Date: May 05, 2017 at 04:20 Discharge Date: May 12, 2017 Admission Diagnosis: (1) TIA (transient ischemic attack) Discharge Diagnosis: (1) Carotid arterial disease Status: Acute (2) Acute ischemic right MCA stroke Status: Acute (3) TIA (transient ischemic attack) Status: Acute Brief History from admission Mr. Redding is a 71/M with a PMH of Hypertension and Hyperlipidemia. Pt arrived to the Emergency Department yesterday evening after experiencing two episodes of left arm weakness/numbness lasting 15 minutes. Pt denied any visual or speech disturbances while episodes occurred. Recent Ultrasound study revealed new onset right sided carotid artery stenosis, No previous hx of Procedure(s): R CEA Significant Findings GENERAL: A&OX3,NAD,GCS15 SKIN: Warm and dry/ R sided neck incision with surgical glue closure I/C/D w/o D /S erythema present at the incision line HEAD: Normocephalic. NECK: Supple, No JVD CARDIOVASCULAR: RRR RESPIRATORY: BS CTA Pt w/o any new neurological events Improved right sided facial droop Pt Denies Headache Hospital Course: Mr. Redding is a 71/M with a PMH of Hypertension and Hyperlipidemia. Pt arrived to the Emergency Department yesterday evening after experiencing two episodes of left arm weakness/numbness lasting 15 minutes. Pt denied any visual or speech disturbances while episodes occurred. Recent Ultrasound study revealed new onset right sided carotid artery stenosis, No previous hx of Pt s/p R CEA Pt with improved right sided facial droop Denies Headache Allergies Coded Allergies Type Severity Reaction Last Updated Verified No Known Allergies 05/04/17 No 05/10/////// 05:59 17:59 05:59 17:59 05:59 17:59 Intake Total 1710 ml 1670 ml 240 ml 360 ml 480 ml Output Total 1810 ml 900 ml 750 ml 100 ml 1200 ml Balance -100 ml 770 ml -510 ml 260 ml -720 ml Intake Oral 1340 ml 1320 ml 240 ml 360 ml 480 ml IV Total 370 ml 350 ml 0 ml Output Urine Total 1800 ml 900 ml 750 ml 100 ml 1200 ml Drainage Total 10 ml # Bowel Movements 0 0 0 2 Procedure Category Date Status Time Diet Heart Healthy DIET 05/09/17 Transmitted Breakfast Consult Pt Eval & PT 05/09/17 Logged Treat 09:04 ^ Other Nursing Orders [facility] 05/09/17 In Process 09:05 Physician Name Changes ADMITTING 05/09/17 Transmitted Bladder Scan [facility] 05/09/17 In Process 16:04 Activity Oob With [facility] 05/09/17 In Process Assistance 16:04 Urinary Catheter [facility] 05/09/17 Complete Management 16:04 Tamsulosin (Flomax) MED 05/09/17 In Process 16:30 Remove Urinary PAM 05/11/17 In Process Catheter 07:17 Patient Transfer ADMITTING 05/11/17 Transmitted Pantoprazole MED 05/11/17 In Process (Protonix) 12:30 Attending Discharge DISCHARGE 05/12/17 Transmitted Order Vital Signs Date Time Temp Pulse Resp B/P Pulse Ox O2 Delivery O2 Flow Rate FiO2 05/12/17 06:04 70 05/12/17 05:15 65 05/12/17 04:24 18 05/12/17 04:14 61 05/12/17 03:30 98.0 76 18 157/90 96 05/12/17 03:00 59 05/12/17 02:03 67 05/12/17 01:00 63 05/12/17 00:00 68 05/11/17 23:44 98.9 71 16 146/82 94 05/11/17 23:00 69 05/11/17 22:00 72 05/11/17 21:00 104 05/11/17 20:00 60 05/11/17 20:00 97.5 58 18 143/80 98 05/11/17 19:43 99 21 05/11/17 19:00 87 05/11/17 18:06 75 05/11/17 17:18 86 05/11/17 16:31 70 05/11/17 15:27 74 05/11/17 15:27 98.4 83 18 142/56 96 05/11/17 14:19 119 05/11/17 13:32 101 05/11/17 12:20 70 05/11/17 11:45 71 05/11/17 11:45 98.4 65 18 137/94 98 05/11/17 08:07 69 05/11/17 07:40 96 21 05/11/17 07:15 98.4 69 14 156/87 96 05/11/17 04:00 98.0 77 18 155/79 94 05/11/17 03:20 66 05/11/17 00:00 77 05/11/17 00:00 98.1 74 18 155/58 97 05/10/17 20:46 97 21 05/10/17 20:00 98.2 74 18 168/81 94 05/10/17 19:00 103 05/10/17 15:26 98.1 99 20 138/88 94 05/10/17 15:00 99 05/10/17 12:00 98.0 89 20 136/67 94 05/10/17 11:00 82 05/10/17 10:06 96 21 05/10/17 07:47 97.9 95 18 153/86 94 05/10/17 07:00 82 05/10/17 03:00 95 05/10/17 03:00 97.9 95 18 148/77 95 05/09/17 23:06 117 05/09/17 23:00 98.9 93 18 157/87 94 05/09/17 20:50 97 21 05/09/17 19:00 71 05/09/17 19:00 98.2 117 20 162/79 92 05/09/17 16:50 92 21 05/09/17 15:00 106 05/09/17 15:00 99.1 106 20 149/77 92 05/09/17 11:00 72 05/09/17 11:00 97.6 72 20 141/73 92 Discharge Condition: Good Discharge Disposition: Discharge Home Discharge Instructions: NO driving for 3W No heavy lifting over 8 ILBs Leave incision open to air Do not apply any creams or ointments to your incision as it may dissolve the surgical glue MAY shower NO tub baths No swimming (until incision is fully healed) Follow up in our OPC in 3W w/ a surveillance Carotid Duplex Call the office with any questions or concerns Jessica CHARLES [facility]/[place] [phone] Any questions or concerns: Call [facility] Heart and Vascular Surgery at [facility] [phone] Jessica Wagner May 12, 2017 08:43
[2017-05-12] MEDS: SODIUM CHLORIDE 0.9% FLUSH 5 ML FLUSH IV FLUSH SCH (09:00)
[2017-05-12] MEDS: TAMSULOSIN HCL 0.4 MG CAP PO SCH (09:28)
[2017-05-12] MEDS: ASPIRIN 325 MG TAB PO SCH (09:28)
[2017-05-12] MEDS: PANTOPRAZOLE SOD 40 MG DELAYED RELEASE TAB PO SCH (09:28)
== END 2017-05-12 10:32 | disposition home or self-care (01) | DRG 38 ==
LOC: NEPC 20:37 → NEDA 22:39 → OBSVTOIN 05-05 04:20 → N05A 05-05 04:55 → HCVR 05-07 11:20 → HCIN 05-11 11:44
PROVIDERS: ADMIT Surgery; ATTEND Surgery
PROC: 03UK0KZ Supplement Right Internal Carotid Artery with Nonautologous Tissue Substitute, Open Approach (ICD-10-PCS; 2017-05-07)
PROC: 03CK0Z6 (ICD-10-PCS; principal; 2017-05-07 07:51)
DX: I63.411 Cerebral infarction due to embolism of right middle cerebral artery (principal); G45.9 Transient cerebral ischemic attack, unspecified; I95.9 Hypotension, unspecified; G81.94 Hemiplegia, unspecified affecting left nondominant side; I10 Essential (primary) hypertension; Z87.891 Personal history of nicotine dependence; E78.5 Hyperlipidemia, unspecified; I65.21 Occlusion and stenosis of right carotid artery; R73.9 Hyperglycemia, unspecified; Z79.82 Long term (current) use of aspirin; R29.703 NIHSS score 3; R33.9 Retention of urine, unspecified
CPT/HCPCS: 70450; 70496; 70498; 70551; 76937; 80048; 80053; 80061; 82435; 82550; 82565; 82947; 82948; 83036; 83735; 84132; 84295; 84484; 84520; 85025; 85027; 85384; 85610; 85730; 86850; 86900; 86901; 93005; 93306; 93880; 96360; C9113; G0378; G8987-GP; G8988-GP; J0131; J0360; J0690; J1100; J1644; J1650; J1815; J2250; J2370; J2405; J2720; J3010; J3370; J3480; J7030; J7040; J7050; Q9967